=== PATIENT | female | born 1935 | race Caucasian/White ===

== ENCOUNTER 2019-06-02 11:48 | Outpatient (CLI) | payer MEDICARE, SELFPAY ==
[2019-06-02 17:11] LABS: Vitamin D 25 Hydroxy 81.7 ng/mL
== END 2019-06-02 11:49 | disposition home or self-care (01) ==
LOC: ANHLAB 11:49
PROVIDERS: Obstetrics & Gynecology Gynecology; PCP Internal Medicine; Visit Provider Internal Medicine Hematology & Oncology
DX: E55.9 Vitamin D deficiency, unspecified (principal)
CPT/HCPCS: 36415; 82306

== ENCOUNTER 2019-08-05 13:43 | Outpatient (CLI) | payer MEDICARE, SELFPAY ==
--- NOTE | ~2019-08-05 | MM_ITS ---
EXAMINATION: MM screening [facility] BI w roger HISTORY: Screening mammogram TECHNIQUE: Craniocaudal and mediolateral oblique 3-D tomosynthesis images were obtained and synthetic 2-D images were generated. CAD analysis was submitted and interpreted. COMPARISON: Comparison to multiple prior studies sequentially, with oldest reviewed study dated 07/25. BREAST PARENCHYMAL COMPOSITION: The breasts are heterogeneously dense, which may obscure small masses . FINDINGS: There are benign bilateral breast calcifications. There is no evidence of suspicious mass, calcification, or architectural distortion to suggest malignancy in either breast. There has been no suspicious interval change. IMPRESSION: 1. No mammographic evidence of malignancy. 2. Recommend routine screening mammography in one year. BI-RADS Category 2: Benign finding(s). Reviewed, dictated and finalized at location A.
--- NOTE | ~2019-08-05 | DEXA_ITS ---
Bone Density Report Name: Yoana Paez Age: 84 Sex: Female Ethnicity: White Date of : 1935 Indication: osteopenia; monitoring treatment; hyperparathyroidism; height loss; prior fracture; post menopausal Referring Provider: JW RAMIREZ Study: Bone densitometry was performed. Exam Date: August 05, 2019 Accession number: [id number] Bone Density: Region BMD T-score Z-score Classification AP Spine (L1, L2, L3) 0.880 -1.3 1.5 Osteopenia Femoral Neck (Left) 0.804 -0.4 2.1 Normal Total Hip (Left) 0.919 -0.2 2.1 Normal Total Hip Bilateral Avg 0.898 -0.4 1.9 Normal Femoral Neck (Right) 0.739 -1.0 1.5 Normal Total Hip (Right) 0.875 -0.6 1.7 Normal World Health Organization criteria for BMD impression classify patients as: Normal (T-score at or above -1.0), Osteopenia (T-score between -1.0 and -2.5), or Osteoporosis (T-score at or below -2.5). 10-year Fracture Risk: FRAX not reported because: Prior hip or vertebral fracture Treated for osteoporosis Previous Exams: Region Exam Age BMD T-score BMD Change BMD Change Date g/cm2 vs Baseline vs Previous AP Spine(L1, L2, L3) 08/05/2019 84 0.880 -1.3 0.070(8.6%)# -0.011(-1.3%) 07/27/2016 81 0.891 -1.2 0.081(10.0%)# 0.003(0.4%) 07/20/2014 79 0.888 -1.2 0.077(9.5%)# -0.007(-0.8%)# 07/09/2012 77 0.895 -1.1 0.085(10.4%)# 0.038(4.5%)# 06/27/2010 75 0.857 -1.5 0.046(5.7%)* -0.001(-0.2%) 04/24/2008 73 0.858 -1.5 0.047(5.9%)* 0.047(5.9%)* 02/27/2006 70 0.811 -1.9 Total Hip(Left) 08/05/2019 84 0.919 -0.2 0.033(3.7%)# -0.030(-3.1%)* 07/27/2016 81 0.949 0.1 0.063(7.1%)# 0.005(0.6%) 07/20/2014 79 0.944 0.0 0.057(6.5%)# 0.049(5.5%)# 07/09/2012 77 0.895 -0.4 0.009(1.0%)# -0.023(-2.5%)# 06/27/2010 75 0.918 -0.2 0.032(3.6%)* 0.006(0.6%) 04/24/2008 73 0.912 -0.2 0.026(2.9%) 0.026(2.9%) 02/27/2006 70 0.886 -0.5 Total Hip(Right) 08/05/2019 84 0.875 -0.6 0.032(3.7%)# -0.012(-1.4%) 07/27/2016 81 0.887 -0.4 0.044(5.2%)# -0.006(-0.7%) 07/20/2014 79 0.894 -0.4 0.050(6.0%)# 0.001(0.1%)# 07/09/2012 77 0.893 -0.4 0.050(5.9%)# -0.003(-0.3%)# 06/27/2010 75 0.896 -0.4 0.052(6.2%)* 0.014(1.6%) 04/24/2008 73 0.882 -0.5 0.038(4.5%)* 0.038(4.5%)* 02/27/2006 70 0.843 -0.8 *Denotes significance at 95% confidence level, LSC for AP Spine = 0.022 g/cm2, LSC for Total Hip = 0.027 g/cm2 Clinical Information Provided by Patient:
== END 2019-08-05 13:44 | disposition home or self-care (01) ==
PROVIDERS: PCP Internal Medicine; Visit Provider Obstetrics & Gynecology Gynecology
DX: Z12.31 Encounter for screening mammogram for malignant neoplasm of breast (principal); Z78.0 Asymptomatic menopausal state
CPT/HCPCS: 77063; 77067; 77080

== ENCOUNTER 2019-08-21 12:33 | Outpatient (CLI) | payer MEDICARE, SELFPAY ==
[2019-08-21 12:48] LABS: Basophils Absolute Auto 0.1 K/mm3 (0.0-0.1); Basophils Percent Auto 1.2 % (0.2-1.2); Eosinophils Absolute Auto 0.2 K/mm3 (0-0.3); Hematocrit 44.4 % (37.0-47.0); Hemoglobin 14.1 g/dL (12.0-15.0); Immature Granulocyte Absolute 0.04 K/mm3 (0.00-0.031); Immature Granulocyte Percent A 0.4 % (0-0.5); Lymphocytes Absolute Auto 2.55 K/mm3 (0.9-3.2); Mean Corpuscular HGB Conc 31.8 g/dl (32-36); Mean Corpuscular Volume 94.5 fl (80-100); Mean Platelet Volume 9.5 fl (7.4-10.4); Monocytes Absolute Auto 0.6 K/mm3 (0.1-0.6); Monocytes Percent Auto 5.6 % (2.6-8.5); Neutrophils Absolute Auto 6.3 K/mm3 (1.3-6.7); Neutrophils Percent Auto 64.8 % (45.5-73.1); Platelet Count Result 506 k/mm3 (150-375); Red Cell Distribution Width 14.8 % (11.5-14.5); White Blood Count 9.8 K/mm3 (4.5-10.0)
[2019-08-21 12:51] LABS: Blood Urea Nitrogen 14 mg/dL (8-26); Carbon Dioxide 29 mmol/L (22-30); Chloride 99 mmol/L (98-109); Estimated Glomerular Filt Rate > 60; Glucose 93 mg/dL (70-105); Potassium 4.1 mmol/L (3.5-4.9); Sodium 137 mmol/L (138-146)
== END 2019-08-21 12:34 | disposition home or self-care (01) ==
PROVIDERS: PCP Internal Medicine; Visit Provider Internal Medicine Hematology & Oncology
DX: D47.1 Chronic myeloproliferative disease (principal)
CPT/HCPCS: 36415; 80048; 85025

== ENCOUNTER 2019-09-10 13:46 | Outpatient (CLI) | payer MEDICARE, SELFPAY ==
[2019-09-10 17:47] LABS: Alanine Aminotransferase 15 U/L (4-35); Albumin Level 4.2 g/dL (3.5-5.1); Alkaline Phosphatase 69 U/L (38-126); Aspartate Amino Transferase 24 U/L (14-36); Bilirubin,Total 0.3 mg/dL (0.2-1.3); Blood Urea Nitrogen 13 mg/dL (7-17); Calcium 9.2 mg/dL (8.4-10.2); Carbon Dioxide 28 mmol/L (22-30); Chloride 101 mmol/L (98-107); Estimated Glomerular Filt Rate > 60; Glucose 87 mg/dL (65-105); Potassium 4.8 mmol/L (3.4-5.0); Sodium 136 mmol/L (137-145)
[2019-09-10 18:03] LABS: Free T4 Free Thyroxine 1.49 ng/mL (0.78-2.19)
== END 2019-09-10 13:47 | disposition home or self-care (01) ==
PROVIDERS: PCP Internal Medicine; Visit Provider Nurse Practitioner
DX: E03.9 Hypothyroidism, unspecified (principal); I10 Essential (primary) hypertension
CPT/HCPCS: 36415; 80053; 84439; 84443

== ENCOUNTER 2020-02-11 12:28 | Outpatient (CLI) | payer MEDICARE, SELFPAY ==
[2020-02-11 12:50] LABS: Basophils Absolute Auto 0.1 K/mm3 (0.0-0.1); Basophils Percent Auto 1.3 % (0.2-1.2); Eosinophils Absolute Auto 0.2 K/mm3 (0-0.3); Eosinophils Percent Auto 2.1 % (0-4.4); Hematocrit 44.1 % (37.0-47.0); Hemoglobin 14.3 g/dL (12.0-15.0); Immature Granulocyte Absolute 0.03 K/mm3 (0.00-0.031); Immature Granulocyte Percent A 0.3 % (0-0.5); Lymphocytes Absolute Auto 2.16 K/mm3 (0.9-3.2); Lymphocytes Percent Auto 23.1 % (18.3-44.2); Mean Corpuscular HGB Conc 32.4 g/dl (32-36); Mean Corpuscular Hemoglobin 30.2 pg (26-34); Mean Corpuscular Volume 93.2 fl (80-100); Mean Platelet Volume 9.5 fl (7.4-10.4); Monocytes Absolute Auto 0.6 K/mm3 (0.1-0.6); Monocytes Percent Auto 6.9 % (2.6-8.5); Neutrophils Absolute Auto 6.2 K/mm3 (1.3-6.7); Neutrophils Percent Auto 66.3 % (45.5-73.1); Platelet Count Result 512 k/mm3 (150-375); Red Blood Count 4.73 M/mm3 (4.2-5.4); White Blood Count 9.3 K/mm3 (4.5-10.0)
[2020-02-11 12:54] LABS: Blood Urea Nitrogen 15 mg/dL (8-26); Carbon Dioxide 29 mmol/L (22-30); Chloride 100 mmol/L (98-109); Estimated Glomerular Filt Rate 60; Glucose 103 mg/dL (70-105); Potassium 4.1 mmol/L (3.5-4.9); Sodium 139 mmol/L (138-146)
== END 2020-02-11 12:29 | disposition home or self-care (01) ==
PROVIDERS: PCP Internal Medicine; Visit Provider Internal Medicine Hematology & Oncology
DX: D47.1 Chronic myeloproliferative disease (principal)
CPT/HCPCS: 36415; 80048; 85025

== ENCOUNTER 2020-03-13 09:20 | Outpatient (CLI) | payer MEDICARE, SELFPAY ==
[2020-03-13 10:38] LABS: Vitamin D 25 Hydroxy 74.8 ng/mL
== END 2020-03-13 09:21 | disposition home or self-care (01) ==
LOC: ANHLAB 09:23
PROVIDERS: PCP Internal Medicine; Visit Provider Internal Medicine
DX: E03.9 Hypothyroidism, unspecified (principal); E55.9 Vitamin D deficiency, unspecified
CPT/HCPCS: 36415; 82306; 84443

== ENCOUNTER 2020-08-06 14:14 | Outpatient (CLI) | payer MEDICARE, SELFPAY ==
--- NOTE | ~2020-08-06 | MM_ITS ---
EXAMINATION: MM screening [facility] BI w roger HISTORY: Screening mammogram TECHNIQUE: Craniocaudal and mediolateral oblique 3-D tomosynthesis images were obtained and synthetic 2-D images were generated. CAD analysis was submitted and interpreted. COMPARISON: , 08/02/2018, 07/30/2017 bilateral digital screening mammogram examinations BREAST PARENCHYMAL COMPOSITION: There are scattered areas of fibroglandular density. FINDINGS: Scattered bilateral benign calcifications are again noted. There is no evidence of suspicio us mass, calcification, or architectural distortion to suggest malignancy in either breast. There has been no suspicious interval change. IMPRESSION: 1. No mammographic evidence of malignancy. 2. Recommend routine screening mammography in one year. BI-RADS Category 2: Benign finding(s). Reviewed, dictated and finalized at location A.
== END 2020-08-06 14:15 | disposition home or self-care (01) ==
LOC: ANHIMG 14:16
PROVIDERS: PCP Internal Medicine; Visit Provider Obstetrics & Gynecology Gynecology
DX: Z12.31 Encounter for screening mammogram for malignant neoplasm of breast (principal)
CPT/HCPCS: 77063; 77067

== ENCOUNTER 2020-08-11 10:06 | Outpatient (CLI) | payer MEDICARE, SELFPAY ==
[2020-08-11 10:21] LABS: Basophils Absolute Auto 0.1 K/mm3 (0.0-0.1); Basophils Percent Auto 1.2 % (0.2-1.2); Eosinophils Absolute Auto 0.2 K/mm3 (0-0.3); Eosinophils Percent Auto 2.3 % (0-4.4); Hematocrit 42.9 % (37.0-47.0); Hemoglobin 13.9 g/dL (12.0-15.0); Immature Granulocyte Absolute 0.03 K/mm3 (0.00-0.031); Immature Granulocyte Percent A 0.3 % (0-0.5); Lymphocytes Absolute Auto 2.58 K/mm3 (0.9-3.2); Lymphocytes Percent Auto 26.3 % (18.3-44.2); Mean Corpuscular HGB Conc 32.4 g/dl (32-36); Mean Corpuscular Hemoglobin 30.6 pg (26-34); Mean Corpuscular Volume 94.5 fl (80-100); Mean Platelet Volume 9.4 fl (7.4-10.4); Monocytes Absolute Auto 0.6 K/mm3 (0.1-0.6); Monocytes Percent Auto 6.4 % (2.6-8.5); Neutrophils Absolute Auto 6.2 K/mm3 (1.3-6.7); Neutrophils Percent Auto 63.5 % (45.5-73.1); Platelet Count Result 507 k/mm3 (150-375); Red Blood Count 4.54 M/mm3 (4.2-5.4); Red Cell Distribution Width 15.3 % (11.5-14.5); White Blood Count 9.8 K/mm3 (4.5-10.0)
[2020-08-11 10:25] LABS: Blood Urea Nitrogen 15 mg/dL (8-26); Carbon Dioxide 30 mmol/L (22-30); Chloride 100 mmol/L (98-109); Estimated Glomerular Filt Rate > 60; Glucose 100 mg/dL (70-105); Potassium 3.9 mmol/L (3.5-4.9); Sodium 139 mmol/L (138-146)
== END 2020-08-11 10:07 | disposition home or self-care (01) ==
PROVIDERS: PCP Internal Medicine; Visit Provider Internal Medicine Hematology & Oncology
DX: D47.3 Essential (hemorrhagic) thrombocythemia (principal)
CPT/HCPCS: 36415; 80048; 85025

== ENCOUNTER 2020-09-07 08:48 | Outpatient (CLI) | payer MEDICARE, SELFPAY ==
[2020-09-07 10:21] LABS: Alanine Aminotransferase 18 U/L (4-35); Albumin Level 4.3 g/dL (3.5-5.1); Alkaline Phosphatase 58 U/L (38-126); Anion Gap 9 mmol/L (8-16); Aspartate Amino Transferase 31 U/L (14-36); Bilirubin,Total 0.6 mg/dL (0.2-1.3); Blood Urea Nitrogen 18 mg/dL (7-17); Calcium 9.8 mg/dL (8.4-10.2); Carbon Dioxide 28 mmol/L (22-30); Chloride 103 mmol/L (98-107); Cholesterol 179 mg/dL (0-200); Estimated Glomerular Filt Rate > 60; Glucose 96 mg/dL (65-105); HDL Direct 68 mg/dL; Potassium 4.8 mmol/L (3.4-5.0); Sodium 140 mmol/L (137-145); Triglycerides 55 mg/dL (<150)
[2020-09-07 10:32] LABS: LDL Cholesterol Direct 74 mg/dL
[2020-09-07 10:51] LABS: Thyroid Stimulating Hormone 0.819 uIU/mL (0.465-4.680)
[2020-09-08 13:51] LABS: Vitamin D 25 Hydroxy 78.4 ng/mL
== END 2020-09-07 08:49 | disposition home or self-care (01) ==
LOC: ANHLAB 08:57
PROVIDERS: Nurse Practitioner; PCP Internal Medicine; Visit Provider Internal Medicine Hematology & Oncology
DX: E03.9 Hypothyroidism, unspecified (principal); Z78.0 Asymptomatic menopausal state; E55.9 Vitamin D deficiency, unspecified
CPT/HCPCS: 36415; 80053; 80061; 82306; 84443

== ENCOUNTER 2021-03-16 08:38 | Outpatient (CLI) | payer MEDICARE, SELFPAY ==
[2021-03-16 10:30] LABS: Anion Gap 9 mmol/L (8-16); Blood Urea Nitrogen 17 mg/dL (9-20); Calcium 9.3 mg/dL (8.4-10.2); Carbon Dioxide 28 mmol/L (22-30); Chloride 99 mmol/L (98-107); Estimated Glomerular Filt Rate > 60; Glucose 101 mg/dL (65-110); Sodium 136 mmol/L (137-145)
[2021-03-16 10:52] LABS: Vitamin D 25 Hydroxy 84.1 ng/mL
== END 2021-03-16 08:39 | disposition home or self-care (01) ==
PROVIDERS: PCP Internal Medicine; Visit Provider Internal Medicine
DX: E55.9 Vitamin D deficiency, unspecified (principal); E03.9 Hypothyroidism, unspecified; I10 Essential (primary) hypertension
CPT/HCPCS: 36415; 80048; 82306; 84443

== ENCOUNTER 2021-03-29 12:16 | Outpatient (CLI) | payer MEDICARE, SELFPAY ==
--- NOTE | ~2021-03-29 | US_ITS ---
EXAMINATION: US thyroid DATE: 03/29/2021 12:46 INDICATION: Hypothyroidism TECHNIQUE: Multiple ultrasound images of the thyroid were obtained. COMPARISON: 09/11/2018 FINDINGS: The right thyroid lobe measures 2.4 x 1.2 x 1.3 cm. The left thyroid lobe is not visualized and repo rtedly surgically absent. No abnormal soft tissue masses identified at the left thyroid fossa. There are few nodules in the right thyroid. No interval change in the largest 1 cm wider than tall solid hy poechoic nodule with smooth margins and without echogenic foci (TI-RADS 4, moderately suspicious , FN A if >=1.5 cm, annual followup is >=1 cm). There also a couple anechoic TI-RADS 1 cystic nodules in t he right thyroid, the larger measuring 7 mm. IMPRESSION: 1. Status post left thyroidectomy. 2. 1 cm thyroid for right thyroid nodule for which annual follow-up ultrasound would be recommended. Reviewed, dictated and finalized at location . ET MAKER
== END 2021-03-29 12:17 | disposition home or self-care (01) ==
LOC: ANHIMG 12:21
PROVIDERS: PCP Internal Medicine; Visit Provider Nurse Practitioner
DX: E04.1 Nontoxic single thyroid nodule (principal); E89.0 Postprocedural hypothyroidism
CPT/HCPCS: 76536

== ENCOUNTER 2021-04-13 11:13 | Outpatient (CLI) | payer MEDICARE, SELFPAY ==
[2021-04-13 11:33] LABS: Basophils Absolute Auto 0.1 K/mm3 (0.0-0.1); Basophils Percent Auto 1.3 % (0.2-1.2); Eosinophils Absolute Auto 0.2 K/mm3 (0-0.3); Eosinophils Percent Auto 1.8 % (0-4.4); Hematocrit 46.8 % (37.0-47.0); Hemoglobin 14.9 g/dL (12.0-15.0); Immature Granulocyte Absolute 0.03 K/mm3 (0.00-0.031); Immature Granulocyte Percent A 0.3 % (0-0.5); Lymphocytes Absolute Auto 2.52 K/mm3 (0.9-3.2); Lymphocytes Percent Auto 24.2 % (18.3-44.2); Mean Corpuscular HGB Conc 31.8 g/dl (32-36); Mean Corpuscular Hemoglobin 31.1 pg (26-34); Mean Corpuscular Volume 97.7 fl (80-100); Mean Platelet Volume 9.5 fl (7.4-10.4); Monocytes Absolute Auto 0.6 K/mm3 (0.1-0.6); Monocytes Percent Auto 5.8 % (2.6-8.5); Neutrophils Absolute Auto 6.9 K/mm3 (1.3-6.7); Neutrophils Percent Auto 66.6 % (45.5-73.1); Platelet Count Result 533 k/mm3 (150-375); Red Blood Count 4.79 M/mm3 (4.2-5.4); Red Cell Distribution Width 15.4 % (11.5-14.5); White Blood Count 10.4 K/mm3 (4.5-10.0)
[2021-04-13 11:37] LABS: Blood Urea Nitrogen 17 mg/dL (8-26); Carbon Dioxide 28 mmol/L (22-30); Chloride 101 mmol/L (98-109); Estimated Glomerular Filt Rate > 60; Glucose 107 mg/dL (70-105); Sodium 140 mmol/L (138-146)
[2021-04-13 15:07] LABS: Alanine Aminotransferase 18 U/L (4-35); Albumin Level 4.4 g/dL (3.5-5.1); Alkaline Phosphatase 74 U/L (38-126); Anion Gap 9 mmol/L (8-16); Aspartate Amino Transferase 28 U/L (14-36); Bilirubin,Total 0.4 mg/dL (0.2-1.3); Blood Urea Nitrogen 16 mg/dL (7-17); Calcium 9.5 mg/dL (8.4-10.2); Carbon Dioxide 26 mmol/L (22-30); Chloride 102 mmol/L (98-107); Estimated Glomerular Filt Rate 59; Glucose 104 mg/dL (65-110); Potassium 4.1 mmol/L (3.4-5.0); Sodium 137 mmol/L (137-145)
== END 2021-04-13 11:14 | disposition home or self-care (01) ==
PROVIDERS: PCP Internal Medicine; Visit Provider Internal Medicine Hematology & Oncology
DX: D47.3 Essential (hemorrhagic) thrombocythemia (principal)
CPT/HCPCS: 36415; 80053; 85025

== ENCOUNTER 2021-09-01 13:28 | Outpatient (CLI) | payer MEDICARE, SELFPAY ==
--- NOTE | ~2021-09-01 | MM_ITS ---
EXAMINATION: MM screening ren BI w roger HISTORY: Screening mammogram TECHNIQUE: Craniocaudal and mediolateral oblique 3-D tomosynthesis images were obtained and synthetic 2-D images were generated. CAD analysis was submitted and interpreted. COMPARISON: 08/06/2020, 07/28/2019, 08/02/2018 bilateral screening mammogram examinations BREAST PARENCHYMAL COMPOSITION: There are scattered areas of fibroglandular density. FINDINGS: Scattered bilateral benign calcifications. There is no evidence of suspicious mass, calcifi cation, or architectural distortion to suggest malignancy in either breast. There has been no suspici ous interval change. IMPRESSION: 1. No mammographic evidence of malignancy. 2. Recommend routine screening mammography in one year. BI-RADS Category 2: Benign finding(s). Reviewed, dictated and finalized at location A.
--- NOTE | ~2021-09-01 | DEXA_ITS ---
Bone Density Report Name: PEPPER WARNER Age: 86 Sex: Female Ethnicity: White Date of : 1935 Indication: postmenopausal; screening for osteoporosis; prior fracture; Referring Provider: JW RAMIREZ Study: Bone densitometry was performed. Exam Date: September 01, 2021 Accession number: [id number] Bone Density: Region BMD T-score Z-score Classification AP Spine(L1-L4) 1.012 -0.3 2.6 Normal Femoral Neck (Left) 0.832 -0.2 2.4 Normal Total Hip (Left) 0.886 -0.5 1.9 Normal Femoral Neck (Right) 0.782 -0.6 1.9 Normal Total Hip (Right) 0.871 -0.6 1.8 Normal Total Hip Mean 0.879 -0.6 1.9 Normal World Health Organization criteria for BMD impression classify patients as: Normal (T-score at or above -1.0), Osteopenia (T-score between -1.0 and -2.5), or Osteoporosis (T-score at or below -2.5). 10-year Fracture Risk: FRAX not reported because: All T-scores for Spine Total, Hip Total, Femoral Neck at or above -1.0 Prior hip or vertebral fracture Previous Exams: Region Exam Age BMD T-score BMD Change BMD Change Date g/cm2 vs Baseline vs Previous AP Spine (L1-L4) 09/01/2021 86 1.012 -0.3 0.061 (6.4%)# 0.061 (6.4%)# 07/09/2012 77 0.952 -0.9 Total Hip(Left) 09/01/2021 86 0.886 -0.5 -0.008 (-0.9%) -0.033 (-3.6%) 08/05/2019 84 0.919 -0.2 0.025 (2.7%)# -0.030 (-3.1%) 07/27/2016 81 0.949 0.1 0.054 (6.1%)# 0.005 (0.6%) 07/20/2014 79 0.944 0.0 0.049 (5.5%)# 0.049 (5.5%)# 07/09/2012 77 0.895 -0.4 Total Hip(Right) 09/01/2021 86 0.871 -0.6 -0.022 (-2.5%) -0.004 (-0.4%) 08/05/2019 84 0.875 -0.6 -0.018 (-2.0%) -0.012 (-1.4%) 07/27/2016 81 0.887 -0.4 -0.006 (-0.6%) -0.006 (-0.7%) 07/20/2014 79 0.894 -0.4 0.001 (0.1%)# 0.001 (0.1%)# 07/09/2012 77 0.893 -0.4 *Denotes significance at 95% confidence level, LSC for AP Spine = 0.022 g/cm2, LSC for Total Hip = 0.027 g/cm2 # Denotes dissimilar scan types or analysis methods Clinical Information Provided by Patient: Have had a previous hip or vertebral fracture Has had a low trauma fracture Has used the following medications: HRT (i.e. estrogen/hormone therapy), Vitamin D, Calcium Patient maximum height was 60 Menopause Age: 51 No regular weight bearing exercise Onset of menses at age 14 Number of children 0 Impression: The patient has normal bone mass. The patient has risk factors, including: previous fracture. The BMD
== END 2021-09-01 13:29 | disposition home or self-care (01) ==
PROVIDERS: PCP Internal Medicine; Visit Provider Obstetrics & Gynecology Gynecology
DX: Z12.31 Encounter for screening mammogram for malignant neoplasm of breast (principal); Z78.0 Asymptomatic menopausal state
CPT/HCPCS: 77063; 77067; 77080

== ENCOUNTER 2021-09-26 10:34 | Outpatient (CLI) | payer MEDICARE, SELFPAY ==
[2021-09-26 12:26] LABS: Alanine Aminotransferase 16 U/L (6-35); Albumin Level 4.5 g/dL (3.5-5.1); Alkaline Phosphatase 72 U/L (38-126); Anion Gap 9 mmol/L (8-16); Aspartate Amino Transferase 24 U/L (14-36); Bilirubin,Total 0.4 mg/dL (0.2-1.3); Blood Urea Nitrogen 15 mg/dL (7-17); Calcium 9.3 mg/dL (8.4-10.2); Carbon Dioxide 28 mmol/L (22-30); Chloride 104 mmol/L (98-107); Cholesterol 171 mg/dL (0-200); Estimated Glomerular Filt Rate 59; Glucose 112 mg/dL (65-110); HDL Direct 65 mg/dL; Potassium 3.9 mmol/L (3.4-5.0); Sodium 141 mmol/L (137-145); Triglycerides 92 mg/dL (<150)
[2021-09-26 12:36] LABS: LDL Cholesterol Direct 68 mg/dL
[2021-09-26 13:11] LABS: Vitamin D 25 Hydroxy 86.1 ng/mL
== END 2021-09-26 10:35 | disposition home or self-care (01) ==
LOC: ANHLAB 10:35
PROVIDERS: Nurse Practitioner; PCP Internal Medicine; Visit Provider Internal Medicine
DX: E55.9 Vitamin D deficiency, unspecified (principal); I10 Essential (primary) hypertension; Z13.220 Encounter for screening for lipoid disorders; E03.9 Hypothyroidism, unspecified
CPT/HCPCS: 36415; 80053; 80061; 82306; 84443

== ENCOUNTER 2021-10-12 11:15 | Outpatient (CLI) | payer MEDICARE, SELFPAY ==
[2021-10-12 11:30] LABS: Basophils Absolute Auto 0.2 K/mm3 (0.0-0.1); Basophils Percent Auto 1.4 % (0.2-1.2); Eosinophils Absolute Auto 0.2 K/mm3 (0-0.3); Eosinophils Percent Auto 1.5 % (0-4.4); Hematocrit 47.3 % (37.0-47.0); Hemoglobin 15.4 g/dL (12.0-15.0); Immature Granulocyte Absolute 0.06 K/mm3 (0.00-0.031); Immature Granulocyte Percent A 0.5 % (0-0.5); Lymphocytes Absolute Auto 2.95 K/mm3 (0.9-3.2); Lymphocytes Percent Auto 24.5 % (18.3-44.2); Mean Corpuscular HGB Conc 32.6 g/dl (32-36); Mean Corpuscular Hemoglobin 31.3 pg (26-34); Mean Corpuscular Volume 96.1 fl (80-100); Mean Platelet Volume 9.4 fl (7.4-10.4); Monocytes Absolute Auto 0.7 K/mm3 (0.1-0.6); Monocytes Percent Auto 5.9 % (2.6-8.5); Neutrophils Percent Auto 66.2 % (45.5-73.1); Platelet Count Result 592 k/mm3 (150-375); Red Blood Count 4.92 M/mm3 (4.2-5.4); Red Cell Distribution Width 15.2 % (11.5-14.5); White Blood Count 12.1 K/mm3 (4.5-10.0)
[2021-10-12 11:33] LABS: Blood Urea Nitrogen 18 mg/dL (8-26); Carbon Dioxide 27 mmol/L (22-30); Chloride 99 mmol/L (98-109); Estimated Glomerular Filt Rate > 60; Glucose 107 mg/dL (70-105); Ionized Calcium (POC) 1.27 mmol/L (1.11-1.31); Potassium 4.2 mmol/L (3.5-4.9); Sodium 137 mmol/L (138-146)
[2021-10-12 14:20] LABS: Alanine Aminotransferase 16 U/L (6-35); Albumin Level 4.8 g/dL (3.5-5.1); Alkaline Phosphatase 79 U/L (38-126); Anion Gap 7 mmol/L (8-16); Aspartate Amino Transferase 25 U/L (14-36); Bilirubin,Total 0.3 mg/dL (0.2-1.3); Blood Urea Nitrogen 18 mg/dL (7-17); Calcium 9.3 mg/dL (8.4-10.2); Carbon Dioxide 27 mmol/L (22-30); Chloride 101 mmol/L (98-107); Estimated Glomerular Filt Rate 59; Glucose 104 mg/dL (65-110); Potassium 4.3 mmol/L (3.4-5.0); Sodium 135 mmol/L (137-145)
== END 2021-10-12 11:16 | disposition home or self-care (01) ==
LOC: ANHLAB 11:17
PROVIDERS: PCP Internal Medicine; Visit Provider Internal Medicine Hematology & Oncology
DX: D47.3 Essential (hemorrhagic) thrombocythemia (principal)
CPT/HCPCS: 36415; 80047; 80053; 85025

== ENCOUNTER 2022-01-11 13:41 | Outpatient (CLI) | payer MEDICARE, SELFPAY ==
[2022-01-11 13:57] LABS: Basophils Absolute Auto 0.1 K/mm3 (0.0-0.1); Basophils Percent Auto 1.2 % (0.2-1.2); Eosinophils Absolute Auto 0.3 K/mm3 (0-0.3); Eosinophils Percent Auto 2.3 % (0-4.4); Hematocrit 45.7 % (37.0-47.0); Hemoglobin 14.7 g/dL (12.0-15.0); Immature Granulocyte Absolute 0.04 K/mm3 (0.00-0.031); Immature Granulocyte Percent A 0.4 % (0-0.5); Lymphocytes Percent Auto 21.9 % (18.3-44.2); Mean Corpuscular HGB Conc 32.2 g/dl (32-36); Mean Corpuscular Hemoglobin 30.9 pg (26-34); Mean Corpuscular Volume 96.2 fl (80-100); Mean Platelet Volume 9.7 fl (7.4-10.4); Monocytes Absolute Auto 0.6 K/mm3 (0.1-0.6); Monocytes Percent Auto 5.2 % (2.6-8.5); Neutrophils Absolute Auto 7.6 K/mm3 (1.3-6.7); Platelet Count Result 532 k/mm3 (150-375); Red Blood Count 4.75 M/mm3 (4.2-5.4); Red Cell Distribution Width 15.3 % (11.5-14.5)
== END 2022-01-11 13:42 | disposition home or self-care (01) ==
LOC: ANHLAB 13:42
PROVIDERS: PCP Internal Medicine; Visit Provider Internal Medicine Hematology & Oncology
DX: D47.3 Essential (hemorrhagic) thrombocythemia (principal)
CPT/HCPCS: 36415; 85025

== ENCOUNTER 2022-03-28 15:04 | Outpatient (CLI) | payer MEDICARE, SELFPAY ==
[2022-03-28 15:14] LABS: Basophils Absolute Auto 0.2 K/mm3 (0.0-0.1); Basophils Percent Auto 1.5 % (0.2-1.2); Eosinophils Absolute Auto 0.2 K/mm3 (0-0.3); Eosinophils Percent Auto 1.9 % (0-4.4); Hematocrit 46.4 % (37.0-47.0); Hemoglobin 15.2 g/dL (12.0-15.0); Immature Granulocyte Absolute 0.04 K/mm3 (0.00-0.031); Immature Granulocyte Percent A 0.4 % (0-0.5); Lymphocytes Absolute Auto 2.85 K/mm3 (0.9-3.2); Lymphocytes Percent Auto 25.4 % (18.3-44.2); Mean Corpuscular HGB Conc 32.8 g/dl (32-36); Mean Corpuscular Hemoglobin 31.6 pg (26-34); Mean Corpuscular Volume 96.5 fl (80-100); Mean Platelet Volume 9.4 fl (7.4-10.4); Monocytes Absolute Auto 0.5 K/mm3 (0.1-0.6); Monocytes Percent Auto 4.6 % (2.6-8.5); Neutrophils Absolute Auto 7.4 K/mm3 (1.3-6.7); Neutrophils Percent Auto 66.2 % (45.5-73.1); Platelet Count Result 577 k/mm3 (150-375); Red Blood Count 4.81 M/mm3 (4.2-5.4); Red Cell Distribution Width 15.7 % (11.5-14.5); White Blood Count 11.2 K/mm3 (4.5-10.0)
[2022-03-28 16:48] LABS: Alanine Aminotransferase 20 U/L (6-35); Albumin Level 4.8 g/dL (3.5-5.1); Alkaline Phosphatase 76 U/L (38-126); Anion Gap 8 mmol/L (8-16); Aspartate Amino Transferase 35 U/L (14-36); Bilirubin,Total 0.4 mg/dL (0.2-1.3); Blood Urea Nitrogen 16 mg/dL (7-17); Calcium 9.2 mg/dL (8.4-10.2); Carbon Dioxide 28 mmol/L (22-30); Chloride 99 mmol/L (98-107); Cholesterol 183 mg/dL (0-200); Estimated Glomerular Filt Rate > 60; Glucose 97 mg/dL (65-110); HDL Direct 72 mg/dL; Potassium 3.8 mmol/L (3.4-5.0); Sodium 135 mmol/L (137-145); Triglycerides 84 mg/dL (<150)
[2022-03-28 16:59] LABS: LDL Cholesterol Direct 67 mg/dL
[2022-03-28 17:06] LABS: Vitamin D 25 Hydroxy 84.2 ng/mL
== END 2022-03-28 15:05 | disposition home or self-care (01) ==
LOC: ANHLAB 15:05
PROVIDERS: PCP Internal Medicine; Visit Provider Internal Medicine
DX: D47.3 Essential (hemorrhagic) thrombocythemia (principal); E78.5 Hyperlipidemia, unspecified; E03.9 Hypothyroidism, unspecified; E55.9 Vitamin D deficiency, unspecified; I10 Essential (primary) hypertension; Z79.899 Other long term (current) drug therapy
CPT/HCPCS: 36415; 80053; 80061; 82306; 84443; 85025

== ENCOUNTER 2022-05-17 13:41 | Outpatient (CLI) | payer MEDICARE, SELFPAY ==
[2022-05-17 13:55] LABS: Basophils Absolute Auto 0.2 K/mm3 (0.0-0.1); Basophils Percent Auto 1.5 % (0.2-1.2); Eosinophils Absolute Auto 0.2 K/mm3 (0-0.3); Eosinophils Percent Auto 1.9 % (0-4.4); Hematocrit 49.3 % (37.0-47.0); Immature Granulocyte Absolute 0.04 K/mm3 (0.00-0.031); Immature Granulocyte Percent A 0.4 % (0-0.5); Lymphocytes Absolute Auto 2.68 K/mm3 (0.9-3.2); Lymphocytes Percent Auto 26.3 % (18.3-44.2); Mean Corpuscular HGB Conc 32.5 g/dl (32-36); Mean Corpuscular Hemoglobin 31.3 pg (26-34); Mean Corpuscular Volume 96.5 fl (80-100); Mean Platelet Volume 9.3 fl (7.4-10.4); Monocytes Absolute Auto 0.6 K/mm3 (0.1-0.6); Monocytes Percent Auto 5.7 % (2.6-8.5); Neutrophils Absolute Auto 6.6 K/mm3 (1.3-6.7); Neutrophils Percent Auto 64.2 % (45.5-73.1); Platelet Count Result 574 k/mm3 (150-375); Red Blood Count 5.11 M/mm3 (4.2-5.4); Red Cell Distribution Width 15.7 % (11.5-14.5); White Blood Count 10.2 K/mm3 (4.5-10.0)
[2022-05-17 14:00] LABS: Blood Urea Nitrogen 16 mg/dL (8-26); Carbon Dioxide 31 mmol/L (22-30); Chloride 100 mmol/L (98-109); Estimated Glomerular Filt Rate 59; Glucose 98 mg/dL (70-105); Ionized Calcium (POC) 1.15 mmol/L (1.11-1.31); Potassium 4.1 mmol/L (3.5-4.9); Sodium 139 mmol/L (138-146)
== END 2022-05-17 13:42 | disposition home or self-care (01) ==
LOC: ANHLAB 13:43
PROVIDERS: PCP Internal Medicine; Visit Provider Internal Medicine Hematology & Oncology
DX: D47.3 Essential (hemorrhagic) thrombocythemia (principal)
CPT/HCPCS: 36415; 80047; 85025

== ENCOUNTER 2022-06-19 10:15 | Outpatient (CLI) | payer MEDICARE, SELFPAY ==
[2022-06-19 13:05] LABS: Vitamin D 25 Hydroxy 88.3 ng/mL
== END 2022-06-19 10:16 | disposition home or self-care (01) ==
PROVIDERS: Obstetrics & Gynecology Gynecology; PCP Internal Medicine; Visit Provider Internal Medicine Hematology & Oncology
DX: E55.9 Vitamin D deficiency, unspecified (principal)
CPT/HCPCS: 36415; 82306

== ENCOUNTER 2022-08-16 13:42 | Outpatient (CLI) | payer MEDICARE, SELFPAY ==
[2022-08-16 13:53] LABS: Basophils Absolute Auto 0.2 K/mm3 (0.0-0.1); Basophils Percent Auto 1.5 % (0.2-1.2); Eosinophils Absolute Auto 0.2 K/mm3 (0-0.3); Eosinophils Percent Auto 2.1 % (0-4.4); Hemoglobin 16.3 g/dL (12.0-15.0); Immature Granulocyte Absolute 0.06 K/mm3 (0.00-0.031); Immature Granulocyte Percent A 0.5 % (0-0.5); Lymphocytes Absolute Auto 2.89 K/mm3 (0.9-3.2); Lymphocytes Percent Auto 25.6 % (18.3-44.2); Mean Corpuscular HGB Conc 32.6 g/dl (32-36); Mean Corpuscular Hemoglobin 31.3 pg (26-34); Mean Platelet Volume 9.5 fl (7.4-10.4); Monocytes Absolute Auto 0.7 K/mm3 (0.1-0.6); Neutrophils Absolute Auto 7.3 K/mm3 (1.3-6.7); Neutrophils Percent Auto 64.3 % (45.5-73.1); Platelet Count Result 616 k/mm3 (150-375); Red Blood Count 5.21 M/mm3 (4.2-5.4); Red Cell Distribution Width 15.6 % (11.5-14.5); White Blood Count 11.3 K/mm3 (4.5-10.0)
== END 2022-08-16 13:43 | disposition home or self-care (01) ==
LOC: ANHLAB 13:44
PROVIDERS: PCP Internal Medicine; Visit Provider Internal Medicine Hematology & Oncology
DX: D47.3 Essential (hemorrhagic) thrombocythemia (principal)
CPT/HCPCS: 36415; 85025

== ENCOUNTER 2022-09-05 14:18 | Outpatient (CLI) | payer MEDICARE, SELFPAY ==
--- NOTE | ~2022-09-05 | MM_ITS ---
EXAMINATION: MM screening ren BI w roger HISTORY: Screening mammogram TECHNIQUE: Craniocaudal and mediolateral oblique 3-D tomosynthesis images were obtained and synthetic 2-D images were generated. CAD analysis was submitted and interpreted. COMPARISON: 09/01/2021, 08/06/2020, 08/05/2019 bilateral screening mammogram examinations BREAST PARENCHYMAL COMPOSITION: There are scattered areas of fibroglandular density. FINDINGS: Multiple bilateral benign calcifications, primarily secretory. There is no evidence of susp icious mass, calcification, or architectural distortion to suggest malignancy in either breast. There has been no suspicious interval change. IMPRESSION: 1. No mammographic evidence of malignancy. 2. Recommend routine screening mammography in one year. BI-RADS Category 2: Benign finding(s). Reviewed, dictated and finalized at location A.
== END 2022-09-05 14:19 | disposition home or self-care (01) ==
LOC: ANHIMG 14:20
PROVIDERS: PCP Family Medicine; Visit Provider Obstetrics & Gynecology Gynecology
DX: Z12.31 Encounter for screening mammogram for malignant neoplasm of breast (principal)
CPT/HCPCS: 77063; 77067

== ENCOUNTER 2022-09-19 14:40 | Outpatient (CLI) | payer MEDICARE, SELFPAY ==
[2022-09-19 14:53] LABS: Basophils Absolute Auto 0.2 K/mm3 (0.0-0.1); Basophils Percent Auto 1.4 % (0.2-1.2); Eosinophils Absolute Auto 0.2 K/mm3 (0-0.3); Eosinophils Percent Auto 1.6 % (0-4.4); Hematocrit 46.5 % (37.0-47.0); Hemoglobin 15.8 g/dL (12.0-15.0); Immature Granulocyte Absolute 0.04 K/mm3 (0.00-0.031); Immature Granulocyte Percent A 0.4 % (0-0.5); Lymphocytes Absolute Auto 2.43 K/mm3 (0.9-3.2); Lymphocytes Percent Auto 22.6 % (18.3-44.2); Mean Corpuscular Hemoglobin 32.4 pg (26-34); Mean Corpuscular Volume 95.3 fl (80-100); Mean Platelet Volume 9.1 fl (7.4-10.4); Monocytes Absolute Auto 0.4 K/mm3 (0.1-0.6); Monocytes Percent Auto 3.8 % (2.6-8.5); Neutrophils Absolute Auto 7.5 K/mm3 (1.3-6.7); Neutrophils Percent Auto 70.2 % (45.5-73.1); Platelet Count Result 464 k/mm3 (150-375); Red Blood Count 4.88 M/mm3 (4.2-5.4); Red Cell Distribution Width 16.8 % (11.5-14.5); White Blood Count 10.7 K/mm3 (4.5-10.0)
[2022-09-19 14:57] LABS: Blood Urea Nitrogen 21 mg/dL (8-26); Carbon Dioxide 27 mmol/L (22-30); Chloride 100 mmol/L (98-109); Estimated Glomerular Filt Rate 24; Glucose 126 mg/dL (70-105); Ionized Calcium (POC) 1.07 mmol/L (1.11-1.31); Potassium 5.1 mmol/L (3.5-4.9); Sodium 134 mmol/L (138-146)
== END 2022-09-19 14:41 | disposition home or self-care (01) ==
LOC: ANHLAB 14:42
PROVIDERS: PCP Family Medicine; Visit Provider Internal Medicine Hematology & Oncology
DX: D47.3 Essential (hemorrhagic) thrombocythemia (principal)
CPT/HCPCS: 36415; 80047; 85025

== ENCOUNTER 2022-10-11 09:36 | Outpatient (CLI) | payer MEDICARE, SELFPAY ==
[2022-10-11 15:28] LABS: Alanine Aminotransferase 26 U/L (6-35); Albumin Level 4.3 g/dL (3.5-5.1); Alkaline Phosphatase 73 U/L (38-126); Anion Gap 6 mmol/L (8-16); Aspartate Amino Transferase 35 U/L (14-36); Bilirubin,Total 0.4 mg/dL (0.2-1.3); Blood Urea Nitrogen 17 mg/dL (7-17); Calcium 9.5 mg/dL (8.4-10.2); Carbon Dioxide 31 mmol/L (22-30); Chloride 97 mmol/L (98-107); Estimated Glomerular Filt Rate > 60; Glucose 96 mg/dL (65-110); Potassium 4.6 mmol/L (3.4-5.0); Sodium 134 mmol/L (137-145)
[2022-10-11 16:07] LABS: Thyroid Stimulating Hormone 0.581 uIU/mL (0.465-4.680)
== END 2022-10-11 09:37 | disposition home or self-care (01) ==
LOC: ANHLAB 09:43
PROVIDERS: PCP Nurse Practitioner; Visit Provider Nurse Practitioner
DX: E03.9 Hypothyroidism, unspecified (principal); I10 Essential (primary) hypertension
CPT/HCPCS: 36415; 80053; 84443

== ENCOUNTER 2022-10-24 13:30 | Outpatient (CLI) | payer MEDICARE, SELFPAY ==
[2022-10-24 13:41] LABS: Basophils Absolute Auto 0.1 K/mm3 (0.0-0.1); Basophils Percent Auto 1.2 % (0.2-1.2); Eosinophils Absolute Auto 0.1 K/mm3 (0-0.3); Eosinophils Percent Auto 1.5 % (0-4.4); Hematocrit 41.3 % (37.0-47.0); Hemoglobin 13.8 g/dL (12.0-15.0); Immature Granulocyte Absolute 0.03 K/mm3 (0.00-0.031); Immature Granulocyte Percent A 0.3 % (0-0.5); Lymphocytes Absolute Auto 2.61 K/mm3 (0.9-3.2); Mean Corpuscular HGB Conc 33.4 g/dl (32-36); Mean Corpuscular Hemoglobin 33.1 pg (26-34); Mean Platelet Volume 9.3 fl (7.4-10.4); Monocytes Absolute Auto 0.4 K/mm3 (0.1-0.6); Monocytes Percent Auto 3.9 % (2.6-8.5); Neutrophils Absolute Auto 6.1 K/mm3 (1.3-6.7); Neutrophils Percent Auto 65.1 % (45.5-73.1); Platelet Count Result 402 k/mm3 (150-375); Red Blood Count 4.17 M/mm3 (4.2-5.4); Red Cell Distribution Width 17.6 % (11.5-14.5); White Blood Count 9.3 K/mm3 (4.5-10.0)
[2022-10-24 13:45] LABS: Blood Urea Nitrogen 19 mg/dL (8-26); Carbon Dioxide 26 mmol/L (22-30); Chloride 99 mmol/L (98-109); Estimated Glomerular Filt Rate 25; Glucose 127 mg/dL (70-105); Ionized Calcium (POC) 1.21 mmol/L (1.11-1.31); Potassium 4.2 mmol/L (3.5-4.9); Sodium 136 mmol/L (138-146)
== END 2022-10-24 13:31 | disposition home or self-care (01) ==
LOC: ANHLAB 13:32
PROVIDERS: PCP Nurse Practitioner Family; Visit Provider Internal Medicine Hematology & Oncology
DX: D47.3 Essential (hemorrhagic) thrombocythemia (principal)
CPT/HCPCS: 36415; 80047; 85025

== ENCOUNTER 2022-12-13 14:03 | Outpatient (CLI) | payer MEDICARE, SELFPAY ==
[2022-12-13 14:17] LABS: Basophils Absolute Auto 0.1 K/mm3 (0.0-0.1); Basophils Percent Auto 1.2 % (0.2-1.2); Eosinophils Absolute Auto 0.2 K/mm3 (0-0.3); Eosinophils Percent Auto 1.7 % (0-4.4); Hematocrit 40.1 % (37.0-47.0); Hemoglobin 13.5 g/dL (12.0-15.0); Immature Granulocyte Absolute 0.05 K/mm3 (0.00-0.031); Immature Granulocyte Percent A 0.5 % (0-0.5); Lymphocytes Absolute Auto 2.53 K/mm3 (0.9-3.2); Lymphocytes Percent Auto 24.4 % (18.3-44.2); Mean Corpuscular HGB Conc 33.7 g/dl (32-36); Mean Corpuscular Hemoglobin 34.9 pg (26-34); Mean Corpuscular Volume 103.6 fl (80-100); Mean Platelet Volume 9.4 fl (7.4-10.4); Monocytes Absolute Auto 0.5 K/mm3 (0.1-0.6); Monocytes Percent Auto 4.3 % (2.6-8.5); Neutrophils Absolute Auto 7.1 K/mm3 (1.3-6.7); Neutrophils Percent Auto 67.9 % (45.5-73.1); Platelet Count Result 487 k/mm3 (150-375); Red Blood Count 3.87 M/mm3 (4.2-5.4); White Blood Count 10.4 K/mm3 (4.5-10.0)
[2022-12-13 14:22] LABS: Blood Urea Nitrogen 18 mg/dL (8-26); Carbon Dioxide 26 mmol/L (22-30); Chloride 97 mmol/L (98-109); Estimated Glomerular Filt Rate 24; Glucose 132 mg/dL (70-105); Ionized Calcium (POC) 1.19 mmol/L (1.11-1.31); Potassium 4.2 mmol/L (3.5-4.9); Sodium 138 mmol/L (138-146)
== END 2022-12-13 14:04 | disposition home or self-care (01) ==
LOC: ANHLAB 14:06
PROVIDERS: PCP Nurse Practitioner Family; Visit Provider Internal Medicine Hematology & Oncology
DX: D47.3 Essential (hemorrhagic) thrombocythemia (principal)
CPT/HCPCS: 36415; 80047; 85025

== ENCOUNTER 2022-12-26 13:16 | Outpatient (CLI) | payer MEDICARE, SELFPAY ==
[2022-12-26 16:30] LABS: Uric Acid 3.9 mg/dL (2.5-7.5)
== END 2022-12-26 13:17 | disposition home or self-care (01) ==
LOC: ANHLAB 13:18
PROVIDERS: PCP Nurse Practitioner Family; Visit Provider Internal Medicine Hematology & Oncology
DX: D47.3 Essential (hemorrhagic) thrombocythemia (principal)
CPT/HCPCS: 36415; 84550

== ENCOUNTER 2022-12-27 15:06 | Outpatient (CLI) | payer MEDICARE, SELFPAY ==
[2022-12-27 15:26] LABS: Hematocrit 41.1 % (37.0-47.0); Hemoglobin 13.3 g/dL (12.0-15.0); Mean Corpuscular HGB Conc 32.4 g/dl (32-36); Mean Corpuscular Hemoglobin 34.5 pg (26-34); Mean Corpuscular Volume 106.5 fl (80-100); Mean Platelet Volume 9.4 fl (7.4-10.4); Platelet Count Result 473 k/mm3 (150-375); Red Blood Count 3.86 M/mm3 (4.2-5.4); Red Cell Distribution Width 14.2 % (11.5-14.5); White Blood Count 10.2 K/mm3 (4.5-10.0)
[2022-12-27 15:30] LABS: Blood Urea Nitrogen 21 mg/dL (8-26); Carbon Dioxide 28 mmol/L (22-30); Chloride 100 mmol/L (98-109); Estimated Glomerular Filt Rate 27; Glucose 112 mg/dL (70-105); Ionized Calcium (POC) 1.14 mmol/L (1.11-1.31); Potassium 4.2 mmol/L (3.5-4.9); Sodium 138 mmol/L (138-146)
== END 2022-12-27 15:07 | disposition home or self-care (01) ==
LOC: ANHLAB 15:13
PROVIDERS: PCP Nurse Practitioner Family; Visit Provider Internal Medicine Hematology & Oncology
DX: D47.3 Essential (hemorrhagic) thrombocythemia (principal)
CPT/HCPCS: 36415; 80047; 85027

== ENCOUNTER 2023-02-06 13:03 | Outpatient (CLI) | payer MEDICARE, SELFPAY ==
[2023-02-06 13:20] LABS: Hematocrit 41.5 % (37.0-47.0); Hemoglobin 13.8 g/dL (12.0-15.0); Mean Corpuscular HGB Conc 33.3 g/dl (32-36); Mean Corpuscular Hemoglobin 34.9 pg (26-34); Mean Corpuscular Volume 105.1 fl (80-100); Mean Platelet Volume 9.4 fl (7.4-10.4); Platelet Count Result 407 k/mm3 (150-375); Red Blood Count 3.95 M/mm3 (4.2-5.4); Red Cell Distribution Width 14.1 % (11.5-14.5); White Blood Count 9.8 K/mm3 (4.5-10.0)
[2023-02-06 13:24] LABS: Blood Urea Nitrogen 18 mg/dL (8-26); Carbon Dioxide 28 mmol/L (22-30); Chloride 96 mmol/L (98-109); Estimated Glomerular Filt Rate 17; Glucose 113 mg/dL (70-105); Ionized Calcium (POC) 1.21 mmol/L (1.11-1.31); Potassium 4.3 mmol/L (3.5-4.9); Sodium 135 mmol/L (138-146)
== END 2023-02-06 13:04 | disposition home or self-care (01) ==
LOC: ANHLAB 13:06
PROVIDERS: Nurse Practitioner Family; PCP Nurse Practitioner Family; Visit Provider Internal Medicine Hematology & Oncology
DX: D47.3 Essential (hemorrhagic) thrombocythemia (principal)
CPT/HCPCS: 36415; 80047; 85027

== ENCOUNTER 2023-04-19 13:01 | Outpatient (CLI) | payer MEDICARE, SELFPAY ==
[2023-04-19 17:31] LABS: Free T4 Free Thyroxine 1.89 ng/mL (0.78-2.19)
[2023-04-19 17:42] LABS: Alanine Aminotransferase 24 U/L (6-35); Albumin Level 4.3 g/dL (3.5-5.1); Alkaline Phosphatase 82 U/L (38-126); Anion Gap 10 mmol/L (8-16); Aspartate Amino Transferase 31 U/L (14-36); Bilirubin,Total 0.6 mg/dL (0.2-1.3); Blood Urea Nitrogen 19 mg/dL (7-17); Calcium 9.4 mg/dL (8.4-10.2); Carbon Dioxide 26 mmol/L (22-30); Chloride 101 mmol/L (98-107); Estimated Glomerular Filt Rate > 60; Glucose 97 mg/dL (65-110); Potassium 4.5 mmol/L (3.4-5.0); Sodium 137 mmol/L (137-145)
== END 2023-04-19 13:02 | disposition home or self-care (01) ==
LOC: ANHLAB 13:03
PROVIDERS: PCP Nurse Practitioner Family; Visit Provider Internal Medicine Hematology & Oncology
DX: R53.83 Other fatigue (principal); E04.1 Nontoxic single thyroid nodule; I10 Essential (primary) hypertension; E03.9 Hypothyroidism, unspecified
CPT/HCPCS: 36415; 80053; 84439; 84443

== ENCOUNTER 2023-05-09 12:11 | Outpatient (CLI) | payer MEDICARE, SELFPAY ==
[2023-05-09 12:29] LABS: Hematocrit 39.7 % (37.0-47.0); Hemoglobin 13.2 g/dL (12.0-15.0); Mean Corpuscular HGB Conc 33.2 g/dl (32-36); Mean Corpuscular Hemoglobin 35.5 pg (26-34); Mean Corpuscular Volume 106.7 fl (80-100); Mean Platelet Volume 9.1 fl (7.4-10.4); Platelet Count Result 380 k/mm3 (150-375); Red Blood Count 3.72 M/mm3 (4.2-5.4); Red Cell Distribution Width 13.7 % (11.5-14.5); White Blood Count 9.1 K/mm3 (4.5-10.0)
[2023-05-09 12:33] LABS: Blood Urea Nitrogen 21 mg/dL (8-26); Carbon Dioxide 32 mmol/L (22-30); Chloride 97 mmol/L (98-109); Estimated Glomerular Filt Rate 17; Glucose 115 mg/dL (70-105); Ionized Calcium (POC) 1.24 mmol/L (1.11-1.31); Potassium 4.2 mmol/L (3.5-4.9); Sodium 140 mmol/L (138-146)
== END 2023-05-09 12:12 | disposition home or self-care (01) ==
LOC: ANHLAB 12:17
PROVIDERS: PCP Nurse Practitioner Family; Visit Provider Internal Medicine Hematology & Oncology
DX: D47.3 Essential (hemorrhagic) thrombocythemia (principal)
CPT/HCPCS: 36415; 80047; 85027

== ENCOUNTER 2023-08-07 12:50 | Outpatient (CLI) | payer MEDICARE, SELFPAY ==
[2023-08-07 13:10] LABS: Basophils Absolute Auto 0.1 K/mm3 (0.0-0.1); Basophils Percent Auto 1.2 % (0.2-1.2); Eosinophils Absolute Auto 0.1 K/mm3 (0-0.3); Hematocrit 39.3 % (37.0-47.0); Hemoglobin 13.1 g/dL (12.0-15.0); Immature Granulocyte Absolute 0.03 K/mm3 (0.00-0.031); Immature Granulocyte Percent A 0.4 % (0-0.5); Lymphocytes Absolute Auto 2.22 K/mm3 (0.9-3.2); Lymphocytes Percent Auto 26.7 % (18.3-44.2); Mean Corpuscular HGB Conc 33.3 g/dl (32-36); Mean Corpuscular Hemoglobin 35.2 pg (26-34); Mean Corpuscular Volume 105.6 fl (80-100); Mean Platelet Volume 9.2 fl (7.4-10.4); Monocytes Absolute Auto 0.4 K/mm3 (0.1-0.6); Monocytes Percent Auto 4.4 % (2.6-8.5); Neutrophils Absolute Auto 5.5 K/mm3 (1.3-6.7); Neutrophils Percent Auto 66.3 % (45.5-73.1); Platelet Count Result 369 k/mm3 (150-375); Red Blood Count 3.72 M/mm3 (4.2-5.4); Red Cell Distribution Width 12.6 % (11.5-14.5); White Blood Count 8.3 K/mm3 (4.5-10.0)
[2023-08-07 13:15] LABS: Blood Urea Nitrogen 22 mg/dL (8-26); Carbon Dioxide 25 mmol/L (22-30); Chloride 97 mmol/L (98-109); Estimated Glomerular Filt Rate 17; Glucose 124 mg/dL (70-105); Ionized Calcium (POC) 1.25 mmol/L (1.11-1.31); Potassium 4.3 mmol/L (3.5-4.9); Sodium 138 mmol/L (138-146)
[2023-08-07 16:46] LABS: Vitamin D 25 Hydroxy 95.8 ng/mL
== END 2023-08-07 12:51 | disposition home or self-care (01) ==
LOC: ANHLAB 12:51
PROVIDERS: Nurse Practitioner; Nurse Practitioner Family; PCP Nurse Practitioner Family; Visit Provider Internal Medicine Hematology & Oncology
DX: E55.9 Vitamin D deficiency, unspecified (principal); D47.3 Essential (hemorrhagic) thrombocythemia
CPT/HCPCS: 36415; 80047; 82306; 85025

== ENCOUNTER 2023-09-19 13:26 | Outpatient (CLI) | payer MEDICARE, SELFPAY ==
[2023-09-19 15:21] LABS: Albumin Level 4.4 g/dL (3.5-5.1); Anion Gap 6 mmol/L (4-12); Blood Urea Nitrogen 17 mg/dL (7-17); Calcium 9.5 mg/dL (8.4-10.2); Carbon Dioxide 28 mmol/L (22-30); Chloride 101 mmol/L (98-107); Estimated Glomerular Filt Rate > 60; Glucose 94 mg/dL (65-110); Phosphorus 3.8 mg/dL (2.5-4.5); Potassium 4.3 mmol/L (3.4-5.0); Sodium 135 mmol/L (137-145)
== END 2023-09-19 13:27 | disposition home or self-care (01) ==
PROVIDERS: PCP Nurse Practitioner Family; Visit Provider Internal Medicine Nephrology
DX: R94.4 Abnormal results of kidney function studies (principal)
CPT/HCPCS: 36415; 80069; 83970

== ENCOUNTER 2023-11-06 12:04 | Outpatient (CLI) | payer MEDICARE, SELFPAY ==
[2023-11-06 12:21] LABS: Basophils Absolute Auto 0.1 K/mm3 (0.0-0.1); Basophils Percent Auto 1.3 % (0.2-1.2); Eosinophils Absolute Auto 0.1 K/mm3 (0-0.3); Eosinophils Percent Auto 1.1 % (0-4.4); Hemoglobin 12.7 g/dL (12.0-15.0); Immature Granulocyte Absolute 0.03 K/mm3 (0.00-0.031); Immature Granulocyte Percent A 0.3 % (0-0.5); Lymphocytes Absolute Auto 2.15 K/mm3 (0.9-3.2); Lymphocytes Percent Auto 24.7 % (18.3-44.2); Mean Corpuscular HGB Conc 33.4 g/dl (32-36); Mean Corpuscular Hemoglobin 34.9 pg (26-34); Mean Corpuscular Volume 104.4 fl (80-100); Mean Platelet Volume 9.4 fl (7.4-10.4); Monocytes Absolute Auto 0.5 K/mm3 (0.1-0.6); Monocytes Percent Auto 5.9 % (2.6-8.5); Neutrophils Absolute Auto 5.8 K/mm3 (1.3-6.7); Neutrophils Percent Auto 66.7 % (45.5-73.1); Platelet Count Result 353 k/mm3 (150-375); Red Blood Count 3.64 M/mm3 (4.2-5.4); Red Cell Distribution Width 12.8 % (11.5-14.5); White Blood Count 8.7 K/mm3 (4.5-10.0)
[2023-11-06 12:25] LABS: Blood Urea Nitrogen 18 mg/dL (8-26); Carbon Dioxide 26 mmol/L (22-30); Chloride 100 mmol/L (98-109); Estimated Glomerular Filt Rate 15; Glucose 116 mg/dL (70-105); Potassium 4.2 mmol/L (3.5-4.9); Sodium 134 mmol/L (138-146)
== END 2023-11-06 12:05 | disposition home or self-care (01) ==
LOC: ANHLAB 12:05
PROVIDERS: Nurse Practitioner Family; PCP Nurse Practitioner Family; Visit Provider Internal Medicine Hematology & Oncology
DX: D47.3 Essential (hemorrhagic) thrombocythemia (principal)
CPT/HCPCS: 36415; 80047; 85025

== ENCOUNTER 2023-12-13 14:10 | Outpatient (CLI) | payer MEDICARE, SELFPAY ==
--- NOTE | ~2023-12-13 | DEXA_ITS ---
Bone Density Report Name: PEPPER WARNER Age: 88 Sex: Female Ethnicity: White Date of : 1935 Indication: postmenopausal; screening for osteoporosis; height loss; Referring Provider: NICOLE, HAYLEE Study: Bone densitometry was performed. Exam Date: December 13, 2023 Accession number: [id number] Bone Density: Region BMD T-score Z-score Classification AP Spine(L1-L4) 0.973 -0.7 2.2 Normal Femoral Neck (Left) 0.832 -0.2 2.4 Normal Total Hip (Left) 0.986 0.4 2.7 Normal Femoral Neck (Right) 0.789 -0.5 2.0 Normal Total Hip (Right) 0.911 -0.3 2.1 Normal Total Hip Mean 0.949 0.1 2.4 Normal World Health Organization criteria for BMD impression classify patients as: Normal (T-score at or above -1.0), Osteopenia (T-score between -1.0 and -2.5), or Osteoporosis (T-score at or below -2.5). 10-year Fracture Risk: FRAX not reported because: All T-scores for Spine Total, Hip Total, Femoral Neck at or above -1.0 Previous Exams: Region Exam Age BMD T-score BMD Change BMD Change Date g/cm2 vs Baseline vs Previous AP Spine (L1-L4) 12/13/2023 88 0.973 -0.7 0.021 (2.2%)# -0.040 (-3.9%) 09/01/2021 86 1.012 -0.3 0.061 (6.4%)# 0.061 (6.4%)# 07/09/2012 77 0.952 -0.9 Total Hip(Left) 12/13/2023 88 0.986 0.4 0.092 (10.2%)# 0.100 (11.3%)* 09/01/2021 86 0.886 -0.5 -0.008 (-0.9%) -0.033 (-3.6%) 08/05/2019 84 0.919 -0.2 0.025 (2.7%)# -0.030 (-3.1%) 07/27/2016 81 0.949 0.1 0.054 (6.1%)# 0.005 (0.6%) 07/20/2014 79 0.944 0.0 0.049 (5.5%)# 0.049 (5.5%)# 07/09/2012 77 0.895 -0.4 Total Hip(Right) 12/13/2023 88 0.911 -0.3 0.018 (2.0%)# 0.040 (4.6%)* 09/01/2021 86 0.871 -0.6 -0.022 (-2.5%) -0.004 (-0.4%) 08/05/2019 84 0.875 -0.6 -0.018 (-2.0%) -0.012 (-1.4%) 07/27/2016 81 0.887 -0.4 -0.006 (-0.6%) -0.006 (-0.7%) 07/20/2014 79 0.894 -0.4 0.001 (0.1%)# 0.001 (0.1%)# 07/09/2012 77 0.893 -0.4 *Denotes significance at 95% confidence level, LSC for AP Spine = 0.022 g/cm2, LSC for Total Hip = 0.027 g/cm2 # Denotes dissimilar scan types or analysis methods Clinical Information Provided by Patient: Has used the following medications: Calcium, levothyroxine Patient maximum height was 60.5 Menopause Age: 51 No regular weight bearing exercise Drinks caffeinated beverages Onset of menses at age 9 Number of children 0 Impression: The patient has
--- NOTE | ~2023-12-13 | MM_ITS ---
EXAMINATION: MM screening ren BI w roger HISTORY: Screening TECHNIQUE: Craniocaudal and mediolateral oblique 3-D tomosynthesis images were obtained and synthetic 2-D images were generated. CAD analysis was submitted and interpreted. COMPARISON: Comparison to multiple prior studies sequentially, with oldest reviewed study dated 07/30. BREAST PARENCHYMAL COMPOSITION: Dense: The breasts are heterogeneously dense, which may obscure small masses. FINDINGS: There is no evidence of suspicious mass, calcification, or architectural distortion to sugg est malignancy in either breast. There has been no suspicious interval change. IMPRESSION: 1. No mammographic evidence of malignancy. 2. Recommend routine screening mammography in one year. BI-RADS Category 1: Negative Reviewed, dictated and finalized at location B.
== END 2023-12-13 14:11 | disposition home or self-care (01) ==
LOC: ANHIMG 14:12
PROVIDERS: PCP Nurse Practitioner Family; Visit Provider Nurse Practitioner
DX: Z12.31 Encounter for screening mammogram for malignant neoplasm of breast (principal); Z78.0 Asymptomatic menopausal state; Z13.820 Encounter for screening for osteoporosis
CPT/HCPCS: 77063; 77067; 77080

== ENCOUNTER 2024-01-17 12:22 | Outpatient (CLI) | payer MEDICARE, SELFPAY ==
[2024-01-17 13:23] LABS: Anion Gap 5 mmol/L (4-12); Blood Urea Nitrogen 15 mg/dL (7-17); Calcium 9.4 mg/dL (8.4-10.2); Carbon Dioxide 34 mmol/L (22-30); Chloride 101 mmol/L (98-107); Estimated Glomerular Filt Rate > 60; Glucose 112 mg/dL (65-110); Potassium 4.1 mmol/L (3.4-5.0); Sodium 140 mmol/L (137-145)
== END 2024-01-17 12:23 | disposition home or self-care (01) ==
PROVIDERS: PCP Nurse Practitioner Family; Referring Provider Obstetrics & Gynecology Gynecology; Visit Provider Internal Medicine Nephrology
DX: E55.9 Vitamin D deficiency, unspecified (principal); R94.4 Abnormal results of kidney function studies
CPT/HCPCS: 36415; 80048; 82306

== ENCOUNTER 2024-01-23 10:49 | Outpatient (CLI) | payer MEDICARE, SELFPAY ==
[2024-01-23 11:13] LABS: Basophils Absolute Auto 0.1 K/mm3 (0.0-0.1); Basophils Percent Auto 1.1 % (0.2-1.2); Eosinophils Absolute Auto 0.1 K/mm3 (0-0.3); Eosinophils Percent Auto 1.5 % (0-4.4); Hematocrit 40.8 % (37.0-47.0); Hemoglobin 13.1 g/dL (12.0-15.0); Immature Granulocyte Absolute 0.04 K/mm3 (0.00-0.031); Immature Granulocyte Percent A 0.4 % (0-0.5); Lymphocytes Absolute Auto 2.07 K/mm3 (0.9-3.2); Lymphocytes Percent Auto 23.3 % (18.3-44.2); Mean Corpuscular HGB Conc 32.1 g/dl (32-36); Mean Corpuscular Hemoglobin 32.9 pg (26-34); Mean Corpuscular Volume 102.5 fl (80-100); Mean Platelet Volume 9.4 fl (7.4-10.4); Monocytes Absolute Auto 0.5 K/mm3 (0.1-0.6); Monocytes Percent Auto 5.3 % (2.6-8.5); Neutrophils Absolute Auto 6.1 K/mm3 (1.3-6.7); Neutrophils Percent Auto 68.4 % (45.5-73.1); Platelet Count Result 454 k/mm3 (150-375); Red Blood Count 3.98 M/mm3 (4.2-5.4); Red Cell Distribution Width 12.8 % (11.5-14.5); White Blood Count 8.9 K/mm3 (4.5-10.0)
[2024-01-23 11:18] LABS: Blood Urea Nitrogen 17 mg/dL (8-26); Carbon Dioxide 28 mmol/L (22-30); Chloride 95 mmol/L (98-109); Estimated Glomerular Filt Rate 12; Glucose 122 mg/dL (70-105); Ionized Calcium (POC) 1.18 mmol/L (1.11-1.31); Potassium 4.1 mmol/L (3.5-4.9); Sodium 136 mmol/L (138-146)
[2024-01-23 17:23] LABS: Alanine Aminotransferase 17 U/L (6-35); Albumin Level 4.4 g/dL (3.5-5.1); Alkaline Phosphatase 76 U/L (38-126); Anion Gap 9 mmol/L (4-12); Aspartate Amino Transferase 31 U/L (14-36); Bilirubin,Total 0.5 mg/dL (0.2-1.3); Blood Urea Nitrogen 17 mg/dL (7-17); Calcium 9.6 mg/dL (8.4-10.2); Carbon Dioxide 30 mmol/L (22-30); Chloride 96 mmol/L (98-107); Estimated Glomerular Filt Rate > 60; Glucose 99 mg/dL (65-110); Potassium 4.2 mmol/L (3.4-5.0); Sodium 135 mmol/L (137-145)
== END 2024-01-23 10:50 | disposition home or self-care (01) ==
LOC: ANHLAB 10:50
PROVIDERS: Nurse Practitioner Family; PCP Nurse Practitioner Family; Visit Provider Internal Medicine Hematology & Oncology
DX: D47.3 Essential (hemorrhagic) thrombocythemia (principal)
CPT/HCPCS: 36415; 80047; 80053; 85025

== ENCOUNTER 2024-02-21 15:00 | Outpatient (CLI) | payer MEDICARE, SELFPAY ==
[2024-02-21 17:24] LABS: Alanine Aminotransferase 16 U/L (6-35); Albumin Level 4.3 g/dL (3.5-5.1); Alkaline Phosphatase 82 U/L (38-126); Anion Gap 6 mmol/L (4-12); Aspartate Amino Transferase 51 U/L (14-36); Bilirubin,Total 0.4 mg/dL (0.2-1.3); Blood Urea Nitrogen 16 mg/dL (7-17); Carbon Dioxide 31 mmol/L (22-30); Chloride 100 mmol/L (98-107); Estimated Glomerular Filt Rate > 60; Glucose 102 mg/dL (65-110); Potassium 4.1 mmol/L (3.4-5.0); Sodium 137 mmol/L (137-145)
[2024-02-21 18:39] LABS: Vitamin D 25 Hydroxy 75.7 ng/mL
[2024-02-21 22:03] LABS: Hemoglobin A1C 5.2 % (<5.7)
== END 2024-02-21 15:01 | disposition home or self-care (01) ==
LOC: ANHLAB 15:01
PROVIDERS: PCP Nurse Practitioner Family; Visit Provider Internal Medicine Hematology & Oncology
DX: E03.9 Hypothyroidism, unspecified (principal); D47.3 Essential (hemorrhagic) thrombocythemia; E55.9 Vitamin D deficiency, unspecified; I10 Essential (primary) hypertension; L82.1 Other seborrheic keratosis; L98.9 Disorder of the skin and subcutaneous tissue, unspecified; R73.01 Impaired fasting glucose; Z79.899 Other long term (current) drug therapy
CPT/HCPCS: 36415; 80053; 82306; 83036

== ENCOUNTER 2024-07-09 13:03 | Outpatient (CLI) | payer MEDICARE, SELFPAY ==
[2024-07-09 13:16] LABS: Hematocrit 39.9 % (37.0-47.0); Hemoglobin 13.3 g/dL (12.0-15.0); Mean Corpuscular HGB Conc 33.3 g/dl (32-36); Mean Corpuscular Hemoglobin 34.2 pg (26-34); Mean Corpuscular Volume 102.6 fl (80-100); Mean Platelet Volume 9.6 fl (7.4-10.4); Platelet Count Result 397 k/mm3 (150-375); Red Blood Count 3.89 M/mm3 (4.2-5.4); Red Cell Distribution Width 14.5 % (11.5-14.5)
[2024-07-09 13:20] LABS: Blood Urea Nitrogen 18 mg/dL (8-26); Carbon Dioxide 28 mmol/L (22-30); Chloride 99 mmol/L (98-109); Estimated Glomerular Filt Rate 22; Glucose 113 mg/dL (70-105); Potassium 4.2 mmol/L (3.5-4.9); Sodium 138 mmol/L (138-146)
--- OUTSIDE RECORDS SUMMARY | 2024-07-09 14:24 | XMS_ITS | Encounter Summary ---
Author Organization [facility] [employer] [facility] Address [address] [place] [address] Care Team Providers Care Diving Instructor Name Role Phone Cliff Jacobs MD Primary Care Provider [phone] Reason for Visit * Reason Comments Follow Up Encounter Details Date Type Department Care Team (Late st Contact Info) Description 07/09/2024 2:45 PM CDT Office Visit [facility] Oncology and Hematology - Jon 2227 [facility] [address] [place] [address] Rei Potter MD [address] [facility] [address] [place] [address] Essential thrombocythemia (CMS/HCC) (Primary Dx) Social History Tobacco Use Types Packs/Day Years Used Date Smoking Tobacco: Never Smokeless Tobacco: Never Tobacco Cessation:Counseling Given: Not Answered Alcohol Use Standard Drinks/Week Comments Never 0 (1 standard drink = 0.6 oz pur e alcohol) Comments No Sex and Gender Information Value Date Recorded Sex Assigned at Not on file Legal Sex Female 10:27 AM CDT Gender Identity Not on file Sexual Orientation Not on file documented as of this encounter Last Filed Vital Signs Vital Sign Reading Time Taken Comments Blood Pressure 132/80 07/09/2024 1:19 PM CDT Pulse 80 07/09/2024 1:19 PM CDT Temperature 35.9 C (96.7 F) 07/09/2024 1:19 PM CDT Respiratory Rate 15 07/09/2024 1:19 PM CDT Oxygen Saturation 98% 07/09/2024 1:19 PM CDT Inhaled Oxygen Concentration - - Weight 52.7 kg (116 lb 3.2 oz) 07/09/2024 1:19 P M CDT Height - - Body Mass Index 22.69 01/11/2022 2:10 PM CDT documented in this encounter Progress Notes * Rei Potter MD - 07/09/2024 1:53 PM CDT HEMATOLOGY / ONCOLOGY PROGRESS NOTE Patient Identification: Name: Yoana Paez Age: 89 y.o. 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 TREATMENT HISTORY SUBJECTIVE Patient came to the office for follow-up visit. She is taking hydroxyurea and tolerating it well. Denies any chest pain shortness of breath. No bleeding and bruising. Weight and appetite stable. No other new complaint. Review of system Constitutional: denies fevers, sweats, denies any tiredness and fatigue, weight and appetite stable HEENT: denies sinus congestion, hearing or vision problems Respiratory: denies cough, dyspnea, wheeze Cardiovascular: denies chest pain, exertional chest pressure/discomfort, nausea, syncope, shortnessof breath GI: denies constipation, diarrhea, dsyphagia, reflux symptoms, vomiting, melena : denies dysuria, frequency, incontinence, urgency Integumentary system: no lymphadenopathy, sweats, flushing Musculoskeletal: denies: myalgia, arthralgia Neurological: denies blurry or disturbed vision, numbness/weakness, dizziness Skin: No lumps, bumps or rashes. 12 point review of system was reviewed Objective: Vital signs in last 24 hours: As per nursing note Exam: General appearance: alert, cooperative, no distress, appears stated age Head: normocephalic, without obvious abnormality, atraumatic Eyes: conjunctivae/corneas clear, EOM's intact Ears: normal external ear canals AU Nose: Nares normal. Septum midline. Mucosa normal. No drainage or sinus tenderness Throat: Lips, mucosa, and tongue normal. Teeth and gums normal Neck: supple, symmetrical, trachea midline. Lungs: clear to auscultation bilaterally Heart: regular rate and rhythm, S1, S2 normal, no murmur, click, rub or gallop Abdomen: soft, non-tender. Bowel sounds normal. No masses, No organomegaly Extremities: extremities normal, atraumatic, no cyanosis or edema Skin: Skin color, texture, turgor normal. No rashes or lesions Lymph nodes: No lymphadenopathy Neuro: No obvious focal deficit Exam as above PATH LABS Labs from December 05 showed WBC 11.8 hemoglobin 14 platelet 504,000 neutrophils 70% sedimentation rate 7 C-reactive protein less than 0.5 iron 75 iron saturation 24%. Labs from April 23 showed WBC 9.6 hemoglobin 14.1 platelet 481,000 Labs from August 20 showed WBC 9.8 hemoglobin 14.1 platelet 506,000 creatinine 0.8. Labs from August 11 showed WBC 9.8 hemoglobin 13.9 platelet 507,000 creatinine 1.8. Labs from April 13 showed WBC 10.4 hemoglobin 14.9 platelet 533,000 creatinine 0.8 Labs from October 12 showed WBC 12.1 hemoglobin 15.4 hematocrit 47.3 platelet 592,000 Labs from January 11 showed WBC 11.0 hemoglobin 14.7 platelet 532,000 Labs from May 17 showed hematocrit 49.3 platelet 574,000 Labs from August 16 show WBC 11.3 hemoglobin 16.3 hematocrit 50 platelet 616,000 Labs from September 19 showed creatinine 2.0 WBC 10.7 hematocrit 46.5 platelet 464,000 Labs from October 24 showed WBC 9.3 hemoglobin 13.8 platelet 402,000 creatinine 1.9 Labs from December 27 showed WBC 10.2 hemoglobin 13.3 platelet 473,000 creatinine 1.8 uric acid 3.9 Labs from January 22 showed WBC 8.9 hemoglobin 13.1 platelet 454,000 creatinine 3.7 Labs from July 09 showed WBC 9 hemoglobin 13.3 platelet 3 97,000 creatinine 2.1 Assessment: Plan: Patient Active Problem List Diagnosis Date Noted Essential thrombocythemia (CMS/HCC) 12/05/2018 Hypothyroidism 12/05/2018 Benign hypertension 12/05/2018 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 Labs noted. Platelet count has improved further. She will continue hydroxyurea 500 mg 5 days a weekand skip the weekends. She will continue baby aspirin. Follow-up with me in 6 months. Tumor lysis prevention. Continue adequate hydration. Erythrocytosis. Resolved. Patient is on aspirin. Renal insufficiency. This is an artifact from hydroxyurea. Stable. 07/09/2024 Rei Potter MD documented in this encounter Plan of Treatment Upcoming Encounters Date Type Department Care Team (Late st Contact Info) Description 11/14/2024 10:15 AM CDT Office Visit [facility] Oncology and Hematology [facility] [address] [facility] [address] [place] [id number] Rei Potter MD [address] [facility] [address] [place] [address] Scheduled Orders Name Type Priority Associated Diagnoses Orde r Schedule CBC WITH DIFFERENTIAL Lab Stat Essential thrombocythemia (CMS/HCC) Expected: 10/29/2024, Expires: 07/09/2025 BASIC METABOLIC PANEL Lab Stat Essential thrombocythemia (CMS/HCC) Expected: 10/29/2024, Expires: 07/09/2025 documented as of this encounter Visit Diagnoses Diagnosis Essential thrombocythemia (CMS/HCC)- Primary Essential thrombocythemia documented in this encounter Care Teams Diving Instructor Relationship Specialty Start Date End Date Cliff Jacobs MD PCP - General Family Practice 08/16/22 documented as of this encounter
--- OUTSIDE RECORDS SUMMARY | 2024-07-09 14:24 | XMS_ITS | CONTINUITY OF CARE DOCUMENT ---
Author Name kina castanon Address Unknown Organization [facility] Address [address] [place] [address] [address] [place] [address] Phone [phone] Care Team Providers Care Greige Goods Inspector Name Role Phone kina castanon Unavailable Unavailable INSURANCE PROVIDERS Payer name Policy type / Coverage type [place] red [employer] party ID [employer] OPEN ACCESS Other [id number] [place] Medicare [id number]
--- OUTSIDE RECORDS SUMMARY | 2024-07-09 14:24 | XMS_ITS | Continuity of Care Document ---
Author Organization [facility] Address [address] [place] [address] Phone Care Team Providers Care Straight Ruling Machine Operator Name Role Phone [facility] Unavailable Unavail able Leigh Handley Unavailable Unavailable [...] Provider Providers Copied on Encounter [facility], [address], [place], [place], [address], [place] tel:[phone] [facility] No Information Jan-05 18- 0 Optical Shop [facility] . [address] [facility] [address], [address], [place], [place], [address], [place]. tel:[phone] Referring Provider: Nettie Chance, [address], [place], [address]. tel:[phone] bonner Provider: Leigh Handley, [address] [facility], [place], [address]. tel:[phone] [facility], [address] [place] [address] [address], [place], [place], [address], [place] tel:[phone] [facility] No Information 0 Catie Sheffield. [address] , [address], [place], [place], [facility], [place]. tel:[phone] [facility], [address], [place], [place], [address], [place] tel:[phone] [facility] No Information - 0 aCtie Sheffield. [address] , [address], [place], [address], [place]. tel:[phone] Referring Provider: Nettie Chance, [address], [place], [address]. tel:[phone] Office/outpat ient Visit, Est [facility], [address] [place] [address] [address], [place], [place], [address], [place] tel:[phone] [facility] No Information - 0 Catie Bain [address] , [address], [place], [address], [place]. tel:[phone] Office/outpat ient Visit, Est [facility], [address] [place] [address] [address], [place], [place], [address], [place] tel:[phone] [facility] No Information Oct-0 6-200 9 Catie Sheffield. [address] , [address], [place], [place], [facility], [place]. tel:[phone] [facility], [address] [place] [address] [address], [place], [place], [address], [place] tel:[phone] [facility] No Information Miguel-0 3-200 9 Catie Sheffield. [address] , [address], [place], [facility], [place]. tel:[phone] Referring Provider: Nettie Chance, [address], [place], [facility]. tel:[phone] [facility], [address] [place] [address] [address], [place], [place], [address], tel:[phone] [facility] No Information Miguel-0 2-200 9 Catie Sheffield. [address] , [address], [place], [facility], [place]. tel:[phone] Referring Provider: Nettie Chance, [address], [place], [facility]. tel:[phone] Office/outpat ient Visit, Est [facility], [address] [place] [address] [address], [place], [place], [address], [place] tel:[phone] [facility] No Information Feb-0 3-200 9 Catie Sheffield. [address] , [address], [place], [facility], [place]. tel:[phone] Referring Provider: Nettie Chance, [address], [place], [facility]. tel:[phone] [facility], [address] [place] [address] [address], [place], [place], [address], tel:[phone] [facility] No Information Oct-0 7-200 8 Catie Sheffield. [address] [facility] , [address], [place], [facility], . tel:[phone] Office/outpat ient Visit, Est [facility], [address], [place], [place], [address], tel:[phone] [facility] No Information August-2 0-200 8 Catie Bain [address] [facility] , [address], [place], [facility], . tel:[phone] Referring Provider: Nettie Chance, [address] [place] [address] [address], [place], [facility]. tel:[phone] [facility], [address], [place], [place], [address], tel:[phone] [facility] No Information 2-200 8 Catie Sheffield. [address] [facility] , [address], [place], [address], . tel:[phone] Family History Family Member Type Diagnosis Age At Onset No Information Payers Payer name Insurance type Covered republican ID Authoriza tistevan(s) [employer] Vision Plan CI [id number] Social History Type Description Quantity Date Captured [...]
--- OUTSIDE RECORDS SUMMARY | 2024-07-09 14:24 | XMS_ITS | Clinical Summary ---
Author Organization [facility] Address [address] [place] [address] Care Team Providers Care Church Warden Name Role Phone Cliff Jacobs MD Primary Care Provider [phone] Allergies Active Allergy Reactions Criticality Noted Date Comments Codeine Shortness of Breath/Wheezing High 019 Medications lisinopril (PRINIVIL) 40 mg tablet Take 40 mg by mouth daily. Active levothyroxine (LEVO-T) 88 mcg tablet Take 88 mcg by mouth daily facility manager histology. Active latanoprost (XALATAN) 0.005 % solution 1 Drop daily at bedtime. Active omega-3 fatty acids-fish oil 300-1,000 mg Capsule Take by mouth daily. Active aspirin/calcium carb/magnesium (ASPIRIN,BUFFD- CALCIUM CARB-MAG ORAL) Take 21 mg by mouth. Active CALCIUM CARBONATE-VITAM IN D3 ORAL Take by mouth. Active hydroxyurea (HYDREA) 500 mg capsule Take 1 Capsule (500 mg) by mouth daily. 90 Capsule 5 08/07/2023 Active Active Problems Problem Noted Date Diagnosed Date Essential thrombocythemia 12/05/2018 Hypothyroidism 12/05/2018 Benign hypertension 12/05/2018 Encounters Date Type Department Care Team Description 07/09/2024 2:45 PM CDT Office Visit [facility] Oncology and Hematology - Jon [address] [address] Rei Potter MD Essential thrombocythemia (CMS/HCC) (Primary Dx) 05/28/2024 External Device Data STL ABSTRACTION Provider, Abstract 05/06/2024 External Device Data STL ABSTRACTION Provider, Abstract 04/30/2024 External Device Data STL ABSTRACTION Provider, Abstract 04/30/2024 External Device Data STL ABSTRACTION Provider, Abstract from Last 3 Months Social History Tobacco Use Types Packs/Day Years [...] on file Sexual Orientation Not on file Last Filed Vital Signs Vital Sign Reading [...] oz) 07/09/2024 1:19 P M CDT Height 152.4 cm (5') 01/11/2022 2:10 PM CDT Body Mass Index 22.69 01/11/2022 2:10 PM CDT Plan of Treatment Upcoming Encounters Date Type Department Care Team (Late st Contact Info) Description 07/09/2024 2:45 PM CDT Office Visit [facility] Oncology [facility] Hematology [place] [address] [place] [address] Rei Potter MD [facility] [email or web address] [address] [place] [address] Essential thrombocythemia (CMS/HCC) (Primary Dx) 11/14/2024 10:15 AM CDT Office Visit [facility] Oncology [facility] Hematology [facility] Marycarmen [address] [place] [address] Rei Potter MD 222 [email or web address] [address] [place] [address] Health Maintenance Due Date Last Done Comments DTAP/TDAP/TD VACCINES (1 - Tdap) 1954 PNEUMOCOCCAL VACCINE 50+ YEARS (1 of 1 - PCV) 04/06/19 85 ZOSTER VACCINE (1 of 2) 1985 OSTEOPOROSIS SCREENING 2000 RSV VACCINE (60+ or ) (1 - 1-dose 75+ series) 2010 INFLUENZA VACCINE (#1) 2023 [place]) Prev entative Visit/Annual Wellness Visit 04/09/2024 Insurance AETNA PPO MCR Care Teams Church Warden Relationship Specialty Start Date End Date Cliff Jacobs MD PCP - General Family Practice 08/16/22
== END 2024-07-09 13:04 | disposition home or self-care (01) ==
LOC: ANHLAB 13:03
PROVIDERS: Visit Provider Internal Medicine Hematology & Oncology
DX: D47.3 Essential (hemorrhagic) thrombocythemia (principal)
CPT/HCPCS: 36415; 80047; 85027

== ENCOUNTER 2024-11-14 09:28 | Outpatient (CLI) | payer MEDICARE, SELFPAY ==
--- OUTSIDE RECORDS SUMMARY | 2024-11-14 09:32 | XMS_ITS | Continuity of Care Document ---
Author Organization [facility] Address [address] [place] [address] Phone Care Team Providers Care Laborer Salvage Name Role Phone [facility] Unavailable Unavail able Leigh Handley Unavailable Unavailable [...] Provider Providers Copied on Encounter [facility], [address], [place], [place], [address], [place] tel:[phone] [facility] No Information Jan-05 18- 0 Optical Shop [facility] . [address] [facility], [address], [place], [place], [address], [place]. tel:[phone] Referring Provider: Nettie Chance, [address], [place], [address]. tel:[phone] bonner Provider: Leigh Handley, [address] [facility], [place], [address]. tel:[phone] [facility], [address] [place] [address] [address], [place], [place], [address], [place] tel:[phone] [facility] No Information 0 Catie Sheffield. [address] , [address], [place], [place], [facility], [place]. tel:[phone] [facility], [address], [place], [place], [address], [place] tel:[phone] [facility] No Information - 0 Catie Sheffield. [address] , [address], [place], [address], [place]. tel:[phone] Referring Provider: Nettie Chance, [address], [place], [address]. tel:[phone] Office/outpat ient Visit, Est [facility], [address] [place] [address] [address], [place], [place], [address], [place] tel:[phone] [facility] No Information - 0 Catie Bain [address] , [address], [place], [address], [place]. tel:[phone] Office/outpat ient Visit, Est [facility], [address] [place] [address] [address], [place], [place], [address], [place] tel:[phone] [facility] No Information Oct-0 6-200 9 Catie Sheffield. [address] , [address], [place], [place], [facility], [place]. tel:[phone] [facility], [address] [place] [address] [address], [place], [place], [address], [place] tel:[phone] [facility] No Information Miguel-0 3-200 9 Ctaie Sheffield. [address] , [address], [place], [facility], [place]. tel:[phone] Referring Provider: Nettie Chance, [address], [place], [place], [facility]. tel:[phone] [facility], [address] [place] [address] [address], [place], [place], [address], tel:[phone] [facility] No Information Miguel-0 2-200 9 Catie Sheffield. [address] , [address], [place], [facility], [place]. tel:[phone] Referring Provider: Nettie Chance, [address], [place], [facility]. tel:[phone] Office/outpat ient Visit, Est [facility], [address] [place] [address] [address], [place], [place], [address], [place] tel:[phone] [facility] No Information Feb-0 3-200 9 Catie Sheffield. [address] , [address], [place], [facility], [place]. tel:[phone] Referring Provider: Nettie Chance, [address], [place], [facility]. tel:[phone] [facility], [address] [place] [address] [address], [place], [place], [address], tel:[phone] [facility] No Information Oct-0 7-200 8 Catie Sheffield. [address] [facility] , [address], [place], [facility], . tel:[phone] Office/outpat ient Visit, Est [facility], [address], [place], [place], [address], tel:[phone] [facility] No Information August-2 0-200 [address] [facility] , [address], [place], [facility], . tel:[phone] Referring Provider: Nettie Chance, [address] [place] [address] [address], [place], [facility]. tel:[phone] [facility], [address], [place], [place], [address], tel:[phone] [facility] No Information 2-200 8 Catie Sheffield. [address] [facility] , [address], [place], [address], . tel:[phone] Family History Family Member Type Diagnosis Age At Onset No Information Payers Payer name Insurance type Covered democrat ID Authoriza tistevan(s) [employer] Vision Plan CI [id number] Social History Type Description Quantity Date Captured [...]
--- OUTSIDE RECORDS SUMMARY | 2024-11-14 09:32 | XMS_ITS | Clinical Summary ---
Author Organization [facility] Address [address] [place] [address] Care Team Providers Care Wood Fence Installer Name Role Phone Cliff Jacobs MD Primary Care Provider [phone] Allergies Active Allergy Reactions Criticality Noted Date Comments Codeine Shortness of Breath/Wheezing High 019 Medications lisinopril (PRINIVIL) 40 mg tablet Take 40 mg by mouth daily. Active levothyroxine (LEVO-T) 88 mcg tablet Take 88 mcg by mouth daily paying teller. Active latanoprost (XALATAN) 0.005 % solution 1 [...] Encounters Date Type Department Care Team Description 11/12/2024 External Device Data STL ABSTRACTION Provider, Abstract 10/22/2024 External Device Data STL ABSTRACTION Provider, Abstract 10/22/2024 External Device Data STL ABSTRACTION Provider, Abstract 10/21/2024 External Device Data STL ABSTRACTION Provider, Abstract 09/24/2024 External Device Data STL ABSTRACTION Provider, Abstract 09/23/2024 External Device Data STL ABSTRACTION Provider, Abstract 09/02/2024 External Device Data STL ABSTRACTION Provider, Abstract 08/27/2024 External Device Data STL ABSTRACTION Provider, Abstract 08/26/2024 External Device Data STL ABSTRACTION Provider, Abstract [...] Description 11/14/2024 10:15 AM CDT Office Visit [facility] Oncology and Hematology - Jon [address] [facility] [address] [place] [address] Rei Potter MD [address] [facility] [address] [place] [address] Health Maintenance Due Date Last Done Comments DTAP/TDAP/TD VACCINES (1 - Tdap) 1954 PNEUMOCOCCAL VACCINE 50+ YEARS (1 of 1 - PCV) 04/06/19 85 ZOSTER VACCINE (1 of 2) 1985 OSTEOPOROSIS SCREENING 2000 RSV VACCINE (60+ or ) (1 - 1-dose 75+ series) 2010 [place] Prev entative Visit/Annual Wellness Visit 04/09/2024 INFLUENZA VACCINE (#1) 2024 Insurance AETNA PPO MCR Care Teams Wood Fence Installer Relationship Specialty Start Date End Date Cliff Jacobs MD PCP - General Family Practice 08/16/22
--- OUTSIDE RECORDS SUMMARY | 2024-11-14 09:32 | XMS_ITS | Encounter Summary ---
Author Organization [facility] Address [address] [place] [address] Care Team Providers Care Ultrasound Supervisor Name Role Phone Cliff Jacobs MD Primary Care Provider [phone] Encounter Details Date Type Department Care Team (Late st Contact Info) Description 11/12/2024 External Device Data [facility] Provider, Abstract NO ADDRESS ON FILE Social History Tobacco Use Types Packs/Day Years Used Date Smoking Tobacco: Never Smokeless Tobacco: Never Alcohol Use Standard Drinks/Week Comments Never 0 (1 standard drink = 0.6 oz pur e alcohol) Comments No Sex and Gender Information Value Date Recorded Sex Assigned at Not on file Legal Sex Female 10:27 AM CDT Gender Identity Not on file Sexual Orientation Not on file documented as of this encounter Plan of Treatment Upcoming Encounters Date Type Department Care Team (Late st Contact Info) Description 11/14/2024 10:15 AM CDT Office Visit [facility] Oncology and Hematology - Jon [address] [facility] [address] [place] [address] Rei Potter MD [address] [facility] [address] [place] [address] documented as of this encounter Visit Diagnoses Not on filedocumented in this encounter Care Teams Ultrasound Supervisor Relationship Specialty Start Date End Date Cliff Jacobs MD PCP - General Family Practice 08/16/22 documented as of this encounter
[2024-11-14 09:42] LABS: Hematocrit 38.5 % (37.0-47.0); Hemoglobin 12.8 g/dL (12.0-15.0); Immature Granulocyte Percent A 0.3 % (0-0.5); Lymphocytes Absolute Auto 1.63 K/mm3 (0.9-3.2); Mean Corpuscular HGB Conc 33.2 g/dl (32-36); Mean Corpuscular Hemoglobin 33.6 pg (26-34); Mean Corpuscular Volume 101.0 fl (80-100); Nucleated Red Blood Cells Absolute Auto 0.000 K/mm3 (0.0-0.012); Nucleated Red Blood Cells Perc 0.0 % (0.0-0.2); Platelet Count Result 414 k/mm3 (150-375); Red Blood Count 3.81 M/mm3 (4.2-5.4); White Blood Count 7.4 K/mm3 (4.5-10.0)
[2024-11-14 09:45] LABS: Blood Urea Nitrogen 20 mg/dL (8-26); Carbon Dioxide 29 mmol/L (22-30); Chloride 95 mmol/L (98-109); Estimated Glomerular Filt Rate 11; Glucose 123 mg/dL (70-105); Ionized Calcium (POC) 1.22 mmol/L (1.11-1.31); Potassium 4.4 mmol/L (3.5-4.9); Sodium 134 mmol/L (138-146)
== END 2024-11-14 09:29 | disposition home or self-care (01) ==
LOC: ANHLAB 09:28
PROVIDERS: PCP Internal Medicine; Visit Provider Internal Medicine Hematology & Oncology
DX: D47.3 Essential (hemorrhagic) thrombocythemia (principal)
CPT/HCPCS: 36415; 80047; 85025

== ENCOUNTER 2024-12-30 15:52 | Outpatient (CLI) | payer MEDICARE, SELFPAY ==
--- OUTSIDE RECORDS SUMMARY | 2010-02-03 19:00 | XMS_ITS | Continuity of Care Document ---
Author Organization [facility] Address [address] [place] [address] Phone Care Team Providers Care Refuge Worker Name Role Phone [facility], [facility] Unavailable Unavail able Leigh Handley Unavailable Unavailable Procedures Procedure Date Vision Svcs Frames Purchases Progressive Lens, Polycarb Jan- Polycarb Lens Per Lens Tint Photochromatic, Polycarb Jan- 0 Anti-reflective Coating Eye Exam & Treatment Refraction Visual Field Examination(s) Office/outpatient Visit, Est Optic Nerve Head Eval IPO Reduced 15% Office/outpatient Visit, Est Optic Nerve Head Eval IPO Reduced 15% Visual Field Examination-Professional Ju Visual Field Examination(s) Office/outpatient Visit, Est Optic Nerve Head Eval IOP Red Less Than 15% W Plan Of Care May Fundus Photography W/ Report Eye Exam & Treatment Refraction Office/outpatient Visit, Est Optic Nerve Head Eval Corneal Pachymetry Eye Exam, New Patient Optic Nerve Head Eval Advance Directives Directive Yes / No Effective Date File Name No Information Encounters Encounter Description Practice Location Reason(s) For Visit Diagnoses Date Provider Providers Copied on Encounter [facility], [address], [place], [place], [id number], [place] tel:[phone] [facility] No Information Jan-05 18- 0 [facility] . [address], [address], [place], [place], [id number], [place]. tel:[phone] Referring Provider: Nettie Chance, [address], [place], [address]. tel:[phone] bonner Provider: Leigh Handley, [address] [facility], [place], [address]. tel:[phone] [facility], [address] [place] [address] [address], [place], [place], [address], [place] tel:[phone] [facility] No Information 0 Catie Sheffield. [address] , [address], [place], [place], [facility], [place]. tel:[phone] [facility], [address], [place], [place], [address], [place] tel:[phone] [facility] No Information - 0 Catie Sheffield. [address] , [address], [place], [address], [place]. tel:[phone] Referring Provider: Nettie Chance, [address], [place], [address]. tel:[phone] [facility]pat [facility], [address] [place] [address] [address], [place], [place], [address], [place] tel:[phone] [facility] No Information - 0 Catie Bain [address] , [address], [place], [address], [place]. tel:[phone] [facility]pat ient [facility], [facility] [address] [place] [address] [address], [place], [place], [address], [place] tel:[phone] [facility] No Information Oct-0 6-200 9 Catie Sheffield. [address] , [address], [place], [place], [facility], [place]. tel:[phone] [facility], [address] [place] [address] [address], [place], [place], [address], [place] tel:[phone] [facility] No Information Miguel-0 3-200 9 Catie Sheffield. [address] , [address], [place], [facility], [place]. tel:[phone] Referring Provider: Nettie Chance, [address], [place], [facility]. tel:[phone] [facility], [address] [place] [address] [address], [place], [place], [address], tel:[phone] [facility] No Information Miguel-0 2-200 9 Catie Sheffield. [address] , [address], [place], [facility], [place]. tel:[phone] Referring Provider: Nettie Chance, [address], [place], [facility]. tel:[phone] Office/outpat ient Visit, Est [facility], [address] [place] [address] [address], [place], [place], [address], [place] tel:[phone] [facility] No Information Feb-0 3-200 9 Catie Sheffield. [address] , [address], [place], [facility], [place]. tel:[phone] Referring Provider: Nettie Chance, [address], [place], [facility]. tel:[phone] [facility], [address] [place] [address] [address], [place], [place], [address], tel:[phone] [facility] No Information Oct-0 7-200 8 Catie Sheffield. [address] [facility] , [address], [place], [facility], . tel:[phone] Office/outpat ient Visit, Est [facility], [address], [place], [place], [address], tel:[phone] [facility] No Information August-2 0-200 8 Catie Bain [address] [facility] , [address], [place], [facility], . tel:[phone] Referring Provider: Nettie Chance, [address] [place] [address] [address], [place], [facility]. tel:[phone] [facility], [address], [place], [place], [address], tel:[phone] [facility] No Information 2-200 8 Caite Sheffield. [address] [facility] , [address], [place], [address], . tel:[phone] Family History Family Member Type Diagnosis Age At Onset No Information Payers Payer name Insurance type Covered republican ID Authoriza tistevan(s) [employer] Plan CI [id number] Social History Type Description Quantity Date Captured Comments Sex Female Smoking Status No Information Chief Complaint And Reason For Visit No Information Reason For Referral Reason For Referral No Information History Of Present Illness Encounter Date Complaint History Of Prese nt Illness No Information Functional Status Date Functional Assessmen t No Information Instructions Date Instruction Additional Infor mation No Information Assessments Type Assessment Date No Information Patient Care Teams Name Effective Dates (start - stop) Status Members No Information
--- NOTE | ~2024-12-30 | MM_ITS ---
EXAMINATION: MM screening ren BI w roger HISTORY: Screening TECHNIQUE: Craniocaudal and mediolateral oblique 3-D tomosynthesis images were obtained and synthetic 2-D images were generated. CAD analysis was submitted and interpreted. COMPARISON: 09/05/2022 BREAST PARENCHYMAL COMPOSITION: The breasts are heterogeneously dense, which may obscure small masses. FINDINGS: There is no evidence of suspicious mass, calcification, or architectural distortion to suggest malignancy. There has been no suspicious interval change. IMPRESSION: 1. No mammographic evidence of malignancy. Recommend routine screening mammography in one year. BI-RADS Category 2: Benign finding(s) Reviewed, dictated and finalized at location Q. IMPRESSION: 1. No mammographic evidence of malignancy. Recommend routine screening mammogra phy in one year. BI-RADS Category 2: Benign finding(s)
--- OUTSIDE RECORDS SUMMARY | 2024-12-30 15:56 | XMS_ITS | Clinical Summary ---
Author Organization [facility] Address [address] [place] [address] Care Team Providers Care Drawing Operator Name Role Phone Cliff Jacobs MD Primary Care Provider [phone] Allergies Active Allergy Reactions Criticality Noted Date Comments Codeine Shortness of Breath/Wheezing High 019 Medications lisinopril (PRINIVIL) 40 mg tablet Take 40 mg by mouth daily. 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 Active latanoprost (XALATAN) 0.005 % solution 1 Drop daily at bedtime. Active omega-3 fatty acids-fish oil 300-1,000 mg Capsule Take by mouth daily. Active aspirin/calcium carb/magnesium (ASPIRIN,BUFFD- CALCIUM CARB-MAG ORAL) Take 21 mg by mouth. Active CALCIUM CARBONATE-VITAM IN D3 ORAL Take by mouth. Active hydroxyurea (HYDREA) 500 mg capsule Take 1 capsule by mouth daily Sunday- y. 60 Capsule 2 5 Active hydroxyurea (HYDREA) 500 mg capsule Take 1 Capsule (500 mg) by mouth daily. 90 Capsule 5 4 12/03/19 25 Discontinu ed(Reorder ) Active Problems Problem Noted Date Diagnosed Date Essential thrombocythemia 12/05/2018 Hypothyroidism 12/05/2018 Benign hypertension 12/05/2018 Encounters Date Type Department Care Team Description 12/09/2024 External Device Data [facility]STRACTION Provider, Abstract 12/02/2024 Refill [facility] Oncology and Hematology - Jon [address] [place] [address] Rei Potter MD 11/26/2024 External Device Data [facility] ABSTRACTION Provider, Abstract 11/14/2024 10:15 AM CDT Office Visit [facility] Oncology and Hematology - Jon [address] [place] [address] Rei Potter MD Essential thrombocythemia (CMS/HCC) (Primary Dx) 11/14/2024 Orders Only [facility] Oncology and Hematology - Jon [address] [place] [id number] Rei Potter MD 11/12/2024 External Device Data [facility] ABSTRACTION Provider, [...] Sign Reading Time Taken Comments Blood Pressure 117/61 11/14/2024 10:04 AM CDT Pulse 91 11/14/2024 10:04 AM CDT Temperature 36.5 C (97.7 F) 11/14/2024 10:04 AM CDT Respiratory Rate 15 11/14/2024 10:04 AM CDT Oxygen Saturation 98% 11/14/2024 10:04 AM CDT Inhaled Oxygen Concentration - - Weight 49.6 kg (109 lb 6.4 oz) 11/14/2024 10:04 AM CDT Height 152.4 cm (5') 01/11/2022 2:10 PM CDT Body Mass Index 21.37 01/11/2022 2:10 PM CDT Plan of Treatment Upcoming Encounters Date Type Department Care Team (Late st Contact Info) Description 05/18/2025 11:45 AM COGNOS ADMINISTRATOR Office Visit [facility] Oncology and Hematology - Jon [address] [place] [address] Rei Potter MD [address] [facility] [address] [place] [address] Health Maintenance Due Date Last Done Comments DTAP/TDAP/TD VACCINES (1 - Tdap) 1954 PNEUMOCOCCAL VACCINE 50+ YEARS (1 of 1 - PCV) 04/06/19 85 ZOSTER VACCINE (1 of 2) 1985 OSTEOPOROSIS SCREENING 2000 RSV VACCINE (60+ or ) (1 - 1-dose 75+ series) 2010 INFLUENZA VACCINE (#1) 2024 Procedures Procedure Name Priority Date/Time Associated Diagnosis Comments BASIC METABOLIC PANEL Routine 11/14/2024 1:29 PM CDT CBC WITH AUTODIFFERENTIAL Routine 2024 1:23 PM CDT from Last 3 Months Results * BASIC METABOLIC PANEL (11/14/2024 1:29 PM CDT) Blood Rei Potter MD CHEMISTRY ORDERABLES Final Resu lt * CBC WITH AUTODIFFERENTIAL (11/14/2024 1:23 PM CDT) Blood us Rei Potter MD HEMATOLOGY ORDERABLES Final Res ult from Last 3 Months Insurance [employer] O [facility] Care Teams Drawing Operator Relationship Specialty Start Date End Date Cliff Jacobs MD PCP - General Family Practice 08/16/22
== END 2024-12-30 15:53 | disposition home or self-care (01) ==
LOC: ANHFOHIMG 15:53
PROVIDERS: PCP Internal Medicine; Visit Provider Obstetrics & Gynecology Gynecology
DX: Z12.31 Encounter for screening mammogram for malignant neoplasm of breast (principal)
CPT/HCPCS: 77063; 77067